=== PATIENT | male | born 1965 | race Caucasian/White ===

== ENCOUNTER 2021-06-27 09:00 | Outpatient (REF) | payer OTHER, SELFPAY ==
[2021-06-27 11:13] LABS: Alanine Aminotransferase 26 U/L (0-40); Albumin Level 4.4 g/dL (3.5-5.0); Alkaline Phosphatase 50 U/L (39-117); Anion Gap 10 (12-20); Aspartate Amino Transferase 22 U/L (5-37); Bilirubin Total 1.2 mg/dL (0.0-1.0); Blood Urea Nitrogen 15 mg/dL (9-16); Calcium 9.2 mg/dL (8.4-10.2); Carbon Dioxide 31 mmol/L (22-29); Chloride 102 mmol/L (96-108); Cholesterol 241 mg/dL; Estimated Glomerular Filt Rate > 60; Glucose Fasting 119 mg/dL (60-99); HDL Cholesterol 39 mg/dL; LDL Cholesterol Calculated 166 mg/dl; Potassium 4.1 mmol/L (3.3-5.1); Sodium 139 mmol/L (135-145); Total Protein 7.4 g/dL (6.5-8.0); Triglycerides 181 mg/dL
[2021-06-27 11:22] LABS: Estimated Average Glucose 128 mg/dL; Hemoglobin A1c % 6.1 %
[2021-06-27 11:26] LABS: Appearance Urine CLEAR; Color Urine YELLOW; Glucose Urine UA NEG (NEG); Leukocyte Esterase Urine NEG (NEG); Nitrite Urine NEG (NEG); Urine Blood NEG (NEG); Urine Ketones NEG (NEG); Urine Protein NEG (NEG-TRACE)
[2021-06-27 11:34] LABS: Prostate Specific Antigen Scr 0.44 ng/mL (<0.05-4.0); TSH reflex Free T4 4.62 uIU/mL (0.32-4.0)
[2021-06-27 12:26] LABS: Free T4 (Free Thyroxine) 0.94 ng/dL (0.71-1.85)
== END 2021-06-27 09:01 | disposition home or self-care (01) ==
LOC: HO.WFDLDS 09:00
PROVIDERS: Visit Provider Family Medicine
DX: Z00.00 Encounter for general adult medical examination without abnormal findings (principal); Z12.5 Encounter for screening for malignant neoplasm of prostate; R73.01 Impaired fasting glucose
CPT/HCPCS: 36415; 80053; 80061; 81003; 83036; 84153; 84439; 84443

== ENCOUNTER → 2021-07-08 13:33 | Outpatient (BNVA) | payer OTHER, SELFPAY | PROVIDERS: PCP Family Medicine; Referring Provider Family Medicine; Visit Provider Internal Medicine Cardiovascular Disease | DX: R07.9 Chest pain, unspecified (principal); I45.2 Bifascicular block; E78.5 Hyperlipidemia, unspecified | CPT/HCPCS: 99202 ==

== ENCOUNTER → 2021-07-11 10:09 | Outpatient (REF) | payer OTHER, SELFPAY ==
--- NOTE | ~2021-07-11 | NM_ITS ---
Myocardial perfusion study Indication: Chest pain to evaluate for myocardial ischemia Technique: The patient was brought in for a Lexiscan perfusion study on 07/11/2021. Patient performed low-level exercise and was injected 0.4 mg of Lexiscan intravenously. Within a minute of injection, 30 mCi of sestamibi was given intravenously. Images were obtained using the SPECT gamma camera interlaced with the gating device. Images were obtained in supine position. Resting perfusion study was performed on 07/15/2021. Patient was administered 30 mCi of sestamibi intravenously at rest. Images were then obtained in supine position. Images obtained with and without CT attenuation. Total DLP 91 mGy-cm. Images were processed with the software and compared side to side in short axis, horizontal long axis and vertical long axis views. Findings: The stress perfusion study showed non attenuated images show minimally reduced uptake in the basal inferior wall of the LV myocardium. Remainder of the LV myocardium is normally perfused attenuation corrected images show minimally reduced uptake in the septum of the LV myocardium.. The gated study shows normal LV systolic function with calculated LVEF of 56%. LV cavity is normal in size. The gated study shows normal systolic wall thickening and contraction of segments. Resting study shows no change in perfusion pattern compared to stress perfusion study. Gating at rest reveals normal systolic wall motion with ejection fraction at 59%. The findings are consistent with normal myocardial perfusion. NM/NM cardiolite stress test Impression: 1. Myocardial perfusion imaging study shows normal myocardial perfusion 2. Gated LVEF is 56% 3. Transient ischemic dilatation not present EKG is nondiagnostic for ischemia
--- NOTE | 2021-07-11 10:12 | CA_ITS ---
Acquisition Time: 2021-07-11 10:34:24 Total Exercise Time: 00:05:13 Test Indications: Abnormal ECG Medications: NONE Protocol: SHON Max HR: 115 BPM 69% of Pred: 165 BPM Max BP: 152/088 mmHG Max Work Load: 6.9 METS Exercise stress test with exercise 5 min 13 sec of Shon protocol, with report of 6/10 sharp localized pain to left of sternum which is present with inspiration and request to stop exercise, with nondiagnostic EKG for ischemia due to suboptimal heart rate, achieving 67% MPHR. Pt assisted to sitting position and allowed to rest for 6 min. Chest discomfort resolved. Testing was changed to a pharmacological stress test with Lexiscan injection, without anginal symptoms, without arrythmia, with normotensive response to injection, with nondiagnostic EKG for ischemia. In recovery he reported headache and was treated with Aminophylline 75mg IVP to reverse Lexiscan with resolution of symptom. Nuclear images pending. Test reviewed with Dr Tang. Referred By: Mingo Noel Overread By: INDY DOWELL
--- NOTE | 2021-07-11 11:17 | HM_ITS ---
Conclusion: 1. Patient was monitored for total period of 3 days and 8 hours 2. Baseline was normal sinus with average heart of 80 beats per minute 3. 1 5 beats supra tachycardia episode noted. 4. Very rare ectopy noted 5. No patient reported symptoms MTDD
== END ==
LOC: HO.CARD 10:09
PROVIDERS: PCP Family Medicine; Visit Provider Internal Medicine Cardiovascular Disease
DX: R07.9 Chest pain, unspecified (principal); I45.2 Bifascicular block
CPT/HCPCS: 78452; 93017; 93242; A9500; J0280; J2785

== ENCOUNTER → 2021-07-15 10:23 | Outpatient (REF) | payer OTHER, SELFPAY ==
--- NOTE | 2021-07-15 10:27 | CA_ITS ---
Transthoracic Echocardiogram Patient (Last, First, Middle): Parker Avendano, Gender: Male Date of : 1965 Age: 56 Procedure Date: 07/15/2021 Procedure Type: Transthoracic Echocardiogram Location: OP Height: 175.26 cm Weight: 85.28 kg BSA: 2.01 m2 Heart Rate: bpm BP: 130 / 70 mmHg [place] Camp Counselor: ALEKS Referring MD: Mingo Noel MD Medical Billing Associate: Mingo Noel MD Symptoms: I45.2 - Bifascicular block Study Quality: Fair ECG Rhythm: Sinus Conclusions: - 1. Normal LV systolic function with impaired relaxation filling pattern 2. Mildly dilated ascending aorta 3. Trivial aortic regurgitation 4. Normal RV systolic pressure 5. No gross pericardial effusion Findings Left Ventricle Normal left ventricular size, thickness, and systolic function. The visually estimated ejection fraction is between 55-60%. Spectral Doppler is indicative of an impaired relaxation filling pattern. E/E prime ratio is between 8 and 15 consistent with indeterminate filling pressures. Right Ventricle Normal right ventricular cavity size and systolic function. Atria The left atrium is likely dilated. There is no evidence of interatrial shunt. The right atrium is normal in size. Aortic Valve The aortic valve structure and function is likely normal. There is no aortic valve stenosis. There is trace (trivial) aortic valve regurgitation. Mitral Valve Normal mitral valve structure and function. There is trace mitral valve regurgitation. There is no mitral valve stenosis. Pulmonic Valve The pulmonic valve is likely normal. Tricuspid Valve Likely normal tricuspid valve structure and function. There is trace tricuspid valve regurgitation. The right ventricular systolic pressure is normal. The right ventricular systolic pressure is 10 mmHg. Normal right atrial pressure. There is no evidence of pulmonary hypertension. Great Vessels The pulmonary artery was not well visualized. There is mild dilatation of the ascending aorta. Venous The inferior vena cava is normal in size and collapses greater than 50% with inspiration. Pericardium/Pleural There is no evidence of pericardial effusion. Prior Study Comparison No significant change compared to prior study dated: 07/08/2019. Measurements 2D Linear Measurements IVSd: 1.03 0.6-0.9/0.6-1.0 cm LVIDd: 4.78 3.9-5.3/4.2-5.9 cm LVIDd Index: 2.38 2.4-3.2/2.2-3.1 cm/m2 LVIDs: 2.94 2.0-3.6 cm LVPWd: 1.02 0.7-1.1 cm LA Diam: 3.90 2.7-3.8/3.0-4.0 cm LAIDs Index: 1.94 1.5-2.3 cm/m2 LV Mass: 217.77 67-162/88-224 g LV Mass Index: 108.34 43-95/49-115 g/m2 LVOT Diam: 2.20 3.0+(-)1.3 cm 2D Systolic Function EF 4C: 55.70 >55% EF 2C: 55.90 >55% EF BiP: 56.00 >55% Mitral Valve MV Pk E: 0.50 MV PK A: 0.61 MV Decel Time: 207.00 E/A: 0.80 E'Lateral: 5.33 E'Medial: 4.46 E/E' Med: 11.20 E/E' Lat: 9.40 PHT: 61.00 MVA PHT: 3.61 Decel [place]: 2.42 Aortic Valve AoV Pk Jt: 1.45 AoV Mn Jt: 1.08 AoV VTI: 0.27 AoV Pk Grad: 8.00 Aov Mn Grad: 5.00 GOLDEN Cont.VTI: 2.19 LVOT LVOT Pk Jt: 0.86 LVOT Mn Jt: 0.59 LVOT VTI: 0.16 LVOT Pk Grad: 3.00 LVOT Mn Grad: 2.00 LVOT Diam: 2.20 LVOT Area: 3.80 Diastolic Function MV Pk E: 0.50 MV Pk A: 0.61 E/A: 0.80 E'Medial: 4.46 E/E' Med: 11.20 E' Laterial: 5.33 E/E' Lat: 9.40 Right Ventricle TAPSE (mm): 24.30 TVS' Jt: 12.10 Tricuspid Valve TR Pk Jt: 1.30 TR Pk Grad: 7.00 RA Press: 3.00 RVSP: 10.00 Great Vessels Aorta Sinus of Valsalva: 3.44 2.0-3.[address] [place]: 3.44 1.7-3.4 cm Ao Asc: 4.00 2.1-3.4 cm Ao Arch: 3.60 Updated in Other Vendor System with Status of Final Mingo Noel MD electronically signed on 07/15/2021 11:53:20 AM with status of Final
== END ==
LOC: HO.CARD 10:23
PROVIDERS: PCP Family Medicine; Visit Provider Internal Medicine Cardiovascular Disease
DX: I45.2 Bifascicular block (principal)
CPT/HCPCS: 93306

== ENCOUNTER → 2021-07-31 08:25 | Outpatient (BNVA) | payer OTHER, SELFPAY | PROVIDERS: PCP Family Medicine; Referring Provider Family Medicine; Visit Provider Internal Medicine Cardiovascular Disease | DX: I77.89 Other specified disorders of arteries and arterioles (principal); I45.2 Bifascicular block; E78.5 Hyperlipidemia, unspecified | CPT/HCPCS: 99212 ==

== ENCOUNTER 2021-09-05 14:00 | Outpatient (RCR) | payer OTHER, SELFPAY ==
--- NOTE | 2021-08-23 15:38 | MHC.PT.EP ---
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 REPORTS RELIEF AFTER SURGERY (REHAB/PT) WITH [facility]XS RECURRING ABOUT 1 YR AGO AND PROGRESSING WITH RECENT INCREASE IN R LE PAIN AND PARESTHESIA. 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 REPORTS SITTING IN CAR SIGNIF IRRITATES R LE. PRESENTS WITH R LE WEAKNESS AND DECREASED FLEXIBILITY. GOOD PT CANDIDATE TO ADDRESS THESE ISSUES Frequency and Duration: The patient will be seen 2X/WK X 6 WKS Short Term Goals: 1. INCREASED AWARENESS POSTURE AND BACK CARE 2. CENTRALIZED SXS Mri Manager Goals: 1.I HEP WITH DC EX PLAN 2. DECREASED R LEG PAIN AT LEAST 50% WITH ADLS 3. INCREASED R LE STRENGTH (PER MMT AND REPORT) Treatment Plan: Modalities to reduce pain, spasms and effusion. Manual therapy to restore motion and function. Therapeutic exercise to improve strength and flexibility. Neuromuscular re-education for posture and balance. Therapeutic activities to return to functional activities of daily living. Electronically signed by: EARLINE HARDING PT Please sign and return to therapist. Thank you for your referral.
--- NOTE | 2021-10-21 13:41 | MHC.PT.DC ---
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 LAST SEEN ON 08/30/21 WITH ANNY COULTER DPT,PT. 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 Sheikh at the time). When therapist inquired level ? L5/S1 pt stated he believes so. Upon review [facility] [place] record it appears pt had 05/2004- R sided S1 nerve sheath resection. Pt stated surgery was performed at [facility]. We reviewed stretches of hamstring and calf this date in addition to trial of prone based stabilization with no significant relief of intensity of sx on the R LE. Pt encouraged/educated in benefit in changing position use of lumbar support while driving often and frequently with increased stretching. Pt also educated in potential benefit in obtaining consult for alternative footwear to accommodate arthritic changes to R great toe with increased arch as he presents with flat non supportive worn sneakers.., spoke re: (Wear pattern observed on lateral aspect of heel this date).' Pt THEN CANCELLED FURTHER VISITS..? AWAITING MRI... WAS SEEN BY DR VILLEDA ON 10/11/21. Electronically signed by: EARLINE HARDING PT Please sign and return to therapist. Thank you for your referral.
== END 2021-10-21 13:41 | disposition home or self-care (01) ==
LOC: HO.PTWFD 14:00
PROVIDERS: PCP Family Medicine; Visit Provider Family Medicine
DX: M79.604 Pain in right leg (principal)
CPT/HCPCS: 97110; 97161; 97535

== ENCOUNTER → 2021-10-02 14:23 | Outpatient (BNVA) | payer OTHER, SELFPAY | PROVIDERS: PCP Family Medicine; Visit Provider Nurse Practitioner Family | DX: K59.04 Chronic idiopathic constipation (principal); Z12.11 Encounter for screening for malignant neoplasm of colon | CPT/HCPCS: 99202; 99212 ==

== ENCOUNTER 2021-10-04 07:25 | Outpatient (REF) | payer OTHER, SELFPAY ==
[2021-10-04 11:51] LABS: Cholesterol 216 mg/dL; HDL Cholesterol 38 mg/dL; LDL Cholesterol Calculated 139 mg/dl; Triglycerides 199 mg/dL
[2021-10-08 14:31] LABS: CRP High Sensitivity 0.5 mg/L
== END 2021-10-04 07:26 | disposition home or self-care (01) ==
LOC: HO.WFDLDS 07:25
PROVIDERS: Visit Provider Internal Medicine Cardiovascular Disease
DX: I25.10 Atherosclerotic heart disease of native coronary artery without angina pectoris (principal); E78.5 Hyperlipidemia, unspecified
CPT/HCPCS: 36415; 80061; 86141

== ENCOUNTER 2021-10-09 10:09 | Outpatient (REF) | payer OTHER, SELFPAY ==
--- NOTE | ~2021-10-09 | CT_ITS ---
EXAMINATION: CT ANGIOGRAM OF THE CHEST WITHOUT AND WITH CONTRAST CLINICAL INFORMATION: Thoracic aortic aneurysm COMPARISON: None. TECHNIQUE: Multidetector volumetric CT imaging of the chest was performed before and after the administration of 70 mL of Omnipaque 350 intravenous contrast without immediate adverse reactions. 3D POSTPROCESSING: Multiple 3-D angiographic images were processed from the initial data set by the x ray technologist at the modality workstation under concurrent physician supervision. DOSE LOWERING TECHNIQUES: This CT examination was performed using dose optimization techniques as appropriate, variously including the following: - Automated exposure control - Adjustment of mA and/or kV according to patient size (this includes techniques or standardized protocols for targeted exams where dose is matched to indication/reason for exam; i.e. extremities or head) - Use of iterative reconstruction technique DLP: 328 mGy-cm. FINDINGS: VASCULAR: ASCENDING AORTA: Significant motion artifact seen. This level aortic valve and sinuses. The mid segment measures 4.1 x 4.3 cm. AORTIC ARCH: The mid aortic arch 2.3 x 2.7 cm. Two-vessel arch anatomy. The great vessels are patent. Minimal atherosclerotic wall calcifications DESCENDING AORTA: The proximal segment measures 3.2 x 3.1 cm. The distal segment measures 2.3 x 2.3 cm. No significant atherosclerotic plaque ABDOMINAL AORTA: Visualized proximal abdominal aorta is normal in caliber. NONVASCULAR: LUNGS: The lungs are clear with no evidence of inflammation or nodules. MEDIASTINUM: Heart is enlarged. Pericardium is normal. No mediastinal lymphadenopathy PLEURA: There is no pleural effusion. No pleural mass or thickening. ABDOMINAL VISCERA: Unremarkable OSSEOUS STRUCTURES: Unremarkable. CT/CT angio chest aorta IMPRESSION: Ectasia of the ascending thoracic aorta measuring 4.3 cm in the mid segment. Cardiomegaly
[2021-10-09 10:53] LABS: Anion Gap 11 (12-20); Blood Urea Nitrogen 9 mg/dL (9-16); Calcium 9.2 mg/dL (8.4-10.2); Carbon Dioxide 27 mmol/L (22-29); Chloride 104 mmol/L (96-108); Estimated Glomerular Filt Rate > 60; Glucose Random 132 mg/dL (60-115); Sodium 138 mmol/L (135-145)
[2021-10-09] MEDS: iohexoL 350 MG/ML 75 ML INFUS..BTL 70 ML IV (11:47)
== END 2021-10-09 10:10 | disposition home or self-care (01) ==
LOC: HO.CT 10:09
PROVIDERS: Visit Provider Internal Medicine Cardiovascular Disease
DX: R07.9 Chest pain, unspecified (principal); I77.89 Other specified disorders of arteries and arterioles; R73.03 Prediabetes
CPT/HCPCS: 36415; 71275; 80048; Q9967

== ENCOUNTER 2022-01-16 12:38 | Outpatient (REF) | payer OTHER, SELFPAY | END 2022-01-16 12:39 | disposition home or self-care (01) | LOC: HO.LAB 12:38 | PROVIDERS: Visit Provider Nurse Practitioner Family | DX: Z13.89 Encounter for screening for other disorder (principal) ==

== ENCOUNTER 2022-01-16 14:59 | Outpatient (REF) | payer OTHER, SELFPAY | END 2022-01-16 15:00 | disposition home or self-care (01) | LOC: HO.LNP 14:59 | PROVIDERS: Visit Provider Nurse Practitioner Family | DX: Z20.822 Contact with and (suspected) exposure to COVID-19 (principal); R05.9 Cough, unspecified | CPT/HCPCS: U0003; U0005 ==

== ENCOUNTER 2022-01-30 10:25 | Day surgery (SDC) | payer OTHER, SELFPAY ==
[2022-01-30 10:40] VITALS: BP 157/99; PULSE 74; RESP 16; TEMP 36.2; O2SAT 97; BMI 27.7
[2022-01-30] MEDS: Lactated Ringers 1,000 ML 50 ML IVCONT (10:48)
--- NOTE | 2022-01-30 10:51 | MHC.SHP ---
Pre-Procedural Eval Section A Date of Service: 01/30/22 Section B Chief Complaint: screening Relevant Family History (Specify if Yes): No Relevant Social History: None Present Medications: see Short Stay Collaborative assessment Medical History: Significant History (Bifascicular block Enlarged thoracic aorta Hyperlipidemia) History of Previous Operations: No relevant previous surgery Allergies: Allergies Allergy/AdvReac Type Severity Reaction Status Date / Time No Known Allergies Allergy Verified 01/16/22 13:02 [No Known Allergies*] Review of Systems Sugical H&P ROS: Negative: Constitution, Cardiovascular, Respiratory, Neurological, Psychiatric, Hem-Onc, Allergic/Immunologic, Gastrointestinal, Genitourinary, Musculoskeletal, Integumentary, Endocrine and Eyes/Ears/Nose/Throat Exam Surgical H&P Exam: Normal: HEENT, Normal: Heart, Normal: Lungs, Normal: Extremities, Normal: Abdomen, Normal: Skin and Normal: Neurological Plan Diagnosis/Plan: Unchanged I have reviewed the history and physical and performed a pertinent physical examination on my patient. No changes have occurred unless specified.
--- NOTE | 2022-01-30 11:03 | P.OP_ITS ---
Operative Note Operative Note Date of Service: 01/30/22 Narrative: Operative Information Procedure Description: Colonoscopy Indication: screening Anesthesia: MAC COLONOSCOPY Instrument: Olympus variable stiffness pediatric scope 190L Colonoscopy Monitoring: Vital signs and clinical assessment, continuous EKG monitoring, Pulse oximetry, Carbon Dioxide monitoring and blood pressure monitoring were done throughout the procedure. Colon withdrawal time was 18 minutes. Procedure: The patient was placed in the left lateral decubitis position and pre-procedure medications were administered. After a digital rectal examination of the ano-rectum, the video colonoscope was inserted into the rectum and advanced through the colon to the cecum/TI. The colonoscope was slowly withdrawn in a retrograde panoramic fashion and the colon mucosa was carefully examined including a retroflexed view of the rectum. Findings and interventions are described below. Procedure Difficulty: easy Findings: Terminal Ileum-normal, bx taken Cecum: mild colitis with erythema and few microabscesses Ascending Colon: normal, bx taken , few divertciula seen Transverse Colon -normal Descending Colon:normal Sigmoid Colon: 10 mm sessile polyp removed with cold snare, moderately severe diverticulosis Rectum: Retroflexion with small internal hemorrhoids, grade I Anorectum - normal Colon preparation: Bosler Bowel Preparation Scale Right colon; 2 Transverse colon: 2 Left colon; 2 (0 = Unprepared colon segment with mucosa not seen due to solid stool that cannot be cleared. 1 = Portion of mucosa of the colon segment seen, but other areas of the colon segment not well seen due to staining, residual stool and/or opaque liquid. 2 = Minor amount of residual staining, small fragments of stool and/or opaque liquid, but mucosa of colon segment seen well. 3 = Entire mucosa of colon segment seen well with no residual staining, small fragments of stool or opaque liquid) Impression and Post Procedure Diagnosis: polyp internal hemorrhoids diverticular disease Plan: High fiber diet leaflet Avoid straining at stool, epsom salts and sitz bath, anusol supps or cream Repeat Colonoscopy in 5 years due to polyps or earlier if clinically indicated Above findings were reviewed with the patient and relevant handouts were provided if indicated.
--- NOTE | 2022-01-30 11:08 | PC.NURSE ---
pt denies having COVID. pt states his was positive but his test was never positive and was asymptomatic. Dr. Durand notified and no longer need to obtain COVID test prior to procedure.
[2022-01-30 11:40] VITALS: BP 122/77; PULSE 76; RESP 16; TEMP 36.2; O2SAT 97
--- NOTE | 2022-01-30 11:44 | P.CONAN_ITS ---
HPI - Anesthesia Eval Consult details Narrative: Surveillance [facility] Active Problems Active Problems: All Active Problems (Updated 01/20/22 @ 13:57 by Elder Martinze CNP) COVID-19 (Acute) Viral upper respiratory illness (Acute) Foot pain (Acute) Headache (Acute) Hypertension (Acute) Hypertensive urgency (Acute) Constipation (Acute) Cervicalgia (Acute) Low HDL (under 40) (Acute) Screening for prostate cancer (Acute) Screening for colon cancer (Acute) Elevated TSH (Acute) Pre-diabetes (Acute) Adult general medical exam (Acute) Enlarged thoracic aorta (Acute) Hyperlipidemia (Acute) Bifascicular block (Acute) Exertional chest pain (Acute) Family history of coronary artery disease (Acute) Spinal cord tumor (Acute) Right leg pain (Acute) Elevated fasting blood sugar (Acute) Laboratory examination ordered as part of a complete physical examination (Acute) Past Medical History Medical History Bifascicular block Enlarged thoracic aorta Hyperlipidemia Family History Family history of problems with anesthesia: No Surgical History History of Problems with Anesthesia: No Social History Social History Housing: House Patient Tobacco Use Status: Never used Tobacco e-Cigarette/Vaping Use: Never Used Second Hand Smoke Exposure: No Use of substances other than those prescribed or required for medical reasons: No Are you DNR?: No Advance Directives: No Advance Directives Information Provided: Yes Advance Directives on File: No service: No Current occupational status: employed and unemployed Current occupational exposures/hazards: No Cognitive needs: No Hearing needs: No Vision needs: No Meds Allergies Allergy/AdvReac Type Severity Reaction Status Date / Time No Known Allergies Allergy Verified 01/16/22 13:02 [No Known Allergies*] Active Medications: Current Medications Lactated Ringer's (Lr) 1,000 mls @ 50 mls/hr IVCONT .Q20H KOJO Last Admin: 01/30/22 10:48 Dose: 50 mls/hr Home Medications Medication Instructions Recorded Confirmed Last Taken Type chlorhexidine gluconate 0.12 % ml PO 10/11/21 01/16/22 Unknown History mouthwash oxycodone 5 mg tablet 5 mg PO Q4H PRN pain 10/11/21 01/16/22 Unknown History Exam Exam Date and Time: January 30, 2022 1144 Height,Weight and Vital Signs: Height 5 ft 9 in Weight 85.275 kg Last Vital Signs Temp 97.2 F 01/30/22 10:40 Pulse 74 01/30/22 10:40 Resp 16 01/30/22 10:40 BP 157/99 H 01/30/22 10:40 Pulse Ox 97 01/30/22 10:40 O2 Del Method 01/30/22 10:40 Airway Mallampati Class: II TM Dist: >3cm Neck ROM: Full Loose/Missing/Broken Teeth: No Heart: rrr+s1s2 Lungs: cta b/l Assessment and Plan Assessment Anesthesia Assessment: Anesthesia Plan Discussed and Chart Reviewed Final Anesthetic Review Family History of Problems with Anesthesia: No History of Problems with Anesthesia: No NPO: Yes ASA Class: III Final Preanesthetic Review: No Changes in Pt Med Stat, Meds/Allgs Chart Reviewed, Consent Obtained/Reviewed and Anes Risks/Benef Reviewed Patient Risk: Intermediate Procedure Risk: Intermediate Assessment/Block/Sedation in SS: Assess/Block/Sedation-SS Anesthetic Plan Anesthetic Plan: MAC: and Agree w/ Assess. and Plan Disposition: Standard PACU
[2022-01-30 11:55] VITALS: BP 126/82; PULSE 64; RESP 16; O2SAT 97
[2022-01-30 12:10] VITALS: BP 153/98; PULSE 87; RESP 16; TEMP 36.2; O2SAT 97
== END 2022-01-30 12:50 | disposition home or self-care (01) ==
PROVIDERS: Visit Provider Internal Medicine Gastroenterology
PROC: 0DJD8ZZ Inspection of Lower Intestinal Tract, Via Natural or Artificial Opening Endoscopic (ICD-10-PCS; CPT 45378; principal; 2022-01-30 11:50)
DX: Z12.11 Encounter for screening for malignant neoplasm of colon (principal); D12.5 Benign neoplasm of sigmoid colon; K57.30 Diverticulosis of large intestine without perforation or abscess without bleeding; K52.9 Noninfective gastroenteritis and colitis, unspecified; K64.0 First degree hemorrhoids; K59.04 Chronic idiopathic constipation; E78.5 Hyperlipidemia, unspecified; I45.2 Bifascicular block; I77.810 Thoracic aortic ectasia
CPT/HCPCS: 45385; 45380; 88305

== ENCOUNTER 2022-02-06 08:50 | Outpatient (REF) | payer OTHER, SELFPAY ==
[2022-02-06 12:03] LABS: Appearance Urine Clear; Color Urine Yellow; Glucose Urine UA Negative (Negative); Leukocyte Esterase Urine Negative (Negative); Nitrite Urine Negative (Negative); Urine Blood Negative (Negative); Urine Ketones Negative (Negative); Urine Protein Negative (Neg-Trace)
[2022-02-06 12:19] LABS: Alanine Aminotransferase 34 U/L (0-40); Albumin Level 4.5 g/dL (3.5-5.0); Alkaline Phosphatase 53 U/L (39-117); Anion Gap 14 (12-20); Aspartate Amino Transferase 22 U/L (5-37); Bilirubin Total 1.2 mg/dL (0.0-1.0); Blood Urea Nitrogen 9 mg/dL (9-16); Calcium 9.2 mg/dL (8.4-10.2); Carbon Dioxide 27 mmol/L (22-29); Chloride 104 mmol/L (96-108); Cholesterol 195 mg/dL; Estimated Glomerular Filt Rate > 60; Glucose Random 133 mg/dL (60-115); HDL Cholesterol 40 mg/dL; LDL Cholesterol Calculated 119 mg/dl; Potassium 4.2 mmol/L (3.3-5.1); Sodium 141 mmol/L (135-145); Total Protein 7.3 g/dL (6.5-8.0); Triglycerides 182 mg/dL
[2022-02-06 12:26] LABS: Prostate Specific Antigen Scr 0.35 ng/mL (<0.05-4.0)
== END 2022-02-06 08:51 | disposition home or self-care (01) ==
LOC: HO.WFDLDS 08:50
PROVIDERS: Visit Provider Family Medicine
DX: Z00.00 Encounter for general adult medical examination without abnormal findings (principal); Z12.5 Encounter for screening for malignant neoplasm of prostate; I10 Essential (primary) hypertension; E78.6 Lipoprotein deficiency
CPT/HCPCS: 36415; 80053; 80061; 81003; 84153

== ENCOUNTER 2022-05-28 14:43 | Outpatient (REF) | payer OTHER, SELFPAY ==
[2022-05-29 12:37] LABS: Influenza A PCR NEGATIVE (Negative); Influenza B PCR NEGATIVE (Negative); Resp Syncy Virus RNA Qual PCR NEGATIVE (Negative); SARS COV2 PCR INHOUSE NEGATIVE (Negative)
== END 2022-05-28 14:44 | disposition home or self-care (01) ==
LOC: HO.LAB 14:43
PROVIDERS: Visit Provider Nurse Practitioner Family
DX: Z20.822 Contact with and (suspected) exposure to COVID-19 (principal)
CPT/HCPCS: 0241U

== ENCOUNTER → 2022-08-07 12:53 | Outpatient (REF) | payer OTHER, SELFPAY ==
--- NOTE | 2022-08-07 12:56 | CA_ITS ---
Transthoracic Echocardiogram Patient (Last, First, Middle): Parker Avendano, Gender: Male Date of : 1965 Age: 57 Procedure Date: 08/07/2022 Procedure Type: Transthoracic Echocardiogram Location: OP Height: 175.26 cm Weight: 83.92 kg BSA: 2.00 m2 Heart Rate: 55 bpm BP: 145 / 80 mmHg Check Out Clerk: CHERRIE Referring MD: Mingo Noel MD Symptoms: E78.5 - Hyperlipidemia, unspecified Study Quality: Adequate ECG Rhythm: Sinus Conclusions: - The left ventricular systolic function is low normal. The calculated ejection fraction is 52% by biplane method. Findings Left Ventricle Normal left ventricular cavity size. There is mildly increased left ventricular wall thickness. The left ventricular systolic function is low normal. The calculated ejection fraction is 52% by biplane method. There is no evidence of regional wall motion abnormalities. Diastolic function is normal for age. Right Ventricle Normal right ventricular cavity size and systolic function. Atria Both atria are normal in size. Aortic Valve There is a normal trileaflet aortic valve. There is no aortic valve stenosis. There is trace (trivial) aortic valve regurgitation. Mitral Valve The mitral valve appears normal. There is no mitral valve regurgitation. There is no mitral valve stenosis. Pulmonic Valve The pulmonic valve is likely normal. Tricuspid Valve There is trace tricuspid valve regurgitation. There is no evidence of pulmonary hypertension. Great Vessels The asc aorta is normal in size. Venous The inferior vena cava is normal in size and collapses greater than 50% with inspiration. Pericardium/Pleural There is no evidence of pericardial effusion. Prior Study Comparison Changes noted compared to prior study dated: 07/15/2021. Ascending aortic size smaller; could be technical error. LVEF slightly lower; could be inter-observer variability. Recommendations, Care & Conclusions No obvious valvular pathology seen on this study. Measurements 2D Linear Measurements IVSd: 1.02 0.6-0.9/0.6-1.0 cm LVIDd: 5.09 3.9-5.3/4.2-5.9 cm LVIDd Index: 2.55 2.4-3.2/2.2-3.1 cm/m2 LVIDs: 3.70 2.0-3.6 cm LVPWd: 1.02 0.7-1.1 cm LA Diam: 4.00 2.7-3.8/3.0-4.0 cm LAIDs Index: 2.00 1.5-2.3 cm/m2 LV Mass: 239.82 67-162/88-224 g LV Mass Index: 119.91 43-95/49-115 g/m2 LVOT Diam: 2.20 3.0+(-)1.3 cm 2D Systolic Function EF 4C: 52.40 >55% EF 2C: 56.20 >55% EF BiP: 52.20 >55% Mitral Valve MV Pk E: 0.56 MV PK A: 0.57 MV Decel Time: 176.00 E/A: 1.00 E'Lateral: 8.92 E'Medial: 6.42 E/E' Med: 8.70 E/E' Lat: 6.30 PHT: 52.00 MVA PHT: 4.23 Decel [place]: 3.19 Aortic Valve AoV Pk Jt: 1.29 AoV Mn Jt: 1.08 AoV VTI: 0.31 AoV Pk Grad: 7.00 Aov Mn Grad: 5.00 GOLDEN Cont.VTI: 2.27 LVOT LVOT Pk Jt: 0.89 LVOT Mn Jt: 0.62 LVOT VTI: 0.19 LVOT Pk Grad: 3.00 LVOT Mn Grad: 2.00 LVOT Diam: 2.20 LVOT Area: 3.80 Diastolic Function MV Pk E: 0.56 MV Pk A: 0.57 E/A: 1.00 E'Medial: 6.42 E/E' Med: 8.70 E' Laterial: 8.92 E/E' Lat: 6.30 Right Ventricle TAPSE (mm): 23.40 TVS' Jt: 11.90 Tricuspid Valve TR Pk Jt: 1.24 TR Pk Grad: 6.00 RA Press: 3.00 RVSP: 9.00 Great Vessels Aorta Sinus of Valsalva: 3.50 2.0-3.5 cm Ao Asc: 3.70 2.1-3.4 cm Pulmonary Valve PV Pk Jt: 0.71 Peak PV Grad: 2.00 Updated in Other Vendor System with Status of Final Celestine Power MD electronically signed on 08/08/2022 11:05:54 AM with status of Final
== END ==
LOC: HO.CARD 12:53
PROVIDERS: Visit Provider Internal Medicine Cardiovascular Disease
DX: E78.5 Hyperlipidemia, unspecified (principal)
CPT/HCPCS: 93306

== ENCOUNTER → 2022-10-02 08:54 | Outpatient (BNVA) | payer OTHER, SELFPAY | PROVIDERS: PCP Family Medicine; Visit Provider Internal Medicine | DX: M26.19 Other specified anomalies of jaw-cranial base relationship (principal); R40.0 Somnolence; R06.83 Snoring | CPT/HCPCS: 99202 ==

== ENCOUNTER → 2022-10-16 13:03 | Outpatient (REF) | payer OTHER, SELFPAY | LOC: HO.SL 13:03 | PROVIDERS: PCP Family Medicine; Visit Provider Internal Medicine | DX: R06.83 Snoring (principal); I10 Essential (primary) hypertension; I77.89 Other specified disorders of arteries and arterioles; I45.2 Bifascicular block; R40.0 Somnolence; M26.19 Other specified anomalies of jaw-cranial base relationship | CPT/HCPCS: 93005; 99212 ==

== ENCOUNTER → 2022-10-22 14:49 | Outpatient (REF) | payer OTHER, SELFPAY | LOC: HO.SL 14:49 | PROVIDERS: Visit Provider Internal Medicine | DX: Z13.89 Encounter for screening for other disorder (principal) ==

== ENCOUNTER 2022-12-17 09:41 | Outpatient (AMB) | payer OTHER, SELFPAY ==
[2022-12-17 09:49] VITALS: BP 134/76; PULSE 65; O2SAT 98; BMI 28.3
--- NOTE | 2022-12-17 09:49 | A.OFFVIS_ITS ---
Intake Vital Signs 12/17/22 09:49 Height 5 ft 8 in Weight 186 lb 4.65 oz BMI 28.3 BP 134/76 Blood Pressure Location Lt brachial Position Sitting Pulse 65 Pulse Source Pulse Oximeter Pulse Oximetry (%) 98 Oxygen Delivery Method Room Air Intake Visit Reasons: danica Intake Note: Pt reports he has been doing well and has no concerns. 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 Since his last visit in September, he attempted to do home-based sleep study twice. Unfortunately both times the data was invalid, he does not know why. He try to follow the instructions. Continues to have lot of snoring, feels tired and sleepy during the daytime. His blood pressure has been fluctuating, he has been found to have bifascicular block on EKG. He does. Have intermittent headache. [facility] Medical History Bifascicular block Enlarged thoracic aorta Hyperlipidemia Loud snoring Retrognathia Somnolence, daytime Surgical History Hx of colonoscopy Social History Housing: House Patient Tobacco Use Status: Never used Tobacco e-Cigarette/Vaping Use: Never Used Second Hand Smoke Exposure: No service: No Current occupational status: employed and unemployed Current occupational exposures/hazards: No Cognitive needs: No Hearing needs: No Vision needs: No Review of Systems Const All systems reviewed & are unremarkable except as noted in HPI and below Reports snoring Eyes Reports no additional complaints ENT Reports no additional complaints Card Denies chest pain, Denies irregular heart rhythm, Denies leg edema and Denies dyspnea Resp Denies dyspnea, Reports snoring and Denies wheezing GI Reports no additional complaints Reports no additional complaints Musc Reports back pain (Mild) Skin/Breast Reports system reviewed and no additional complaints, except as documented Neuro Reports no additional complaints Psych Reports no additional complaints Endo Reports no additional complaints Aller/Immun Denies wheezing Physical Exam Vital Signs: Last Vital Signs Pulse 65 12/17/22 09:49 BP 134/76 12/17/22 09:49 Pulse Ox 98 12/17/22 09:49 Oxygen Delivery Method Room Air 12/17/22 09:49 BMI result Body Mass Index 28.3 Const General: cooperative, comfortable, no acute distress, alert, awake and well groomed Nutritional Appearance: overweight Orientation/consciousness: patient oriented x3 Limitations: no limitations HEENT Head: Yes atraumatic Neck Neck: Yes trachea midline, Yes supple and Yes no JVD Chest Chest palpation & inspection: normal inspection of the chest Resp Effort & Inspection: normal respiratory effort Auscultation: clear to auscultation bilaterally Cardio Jugular venous distension: no JVD Palpation: normal PMI Rate: regular rate Rhythm: regular rhythm Heart sounds: S1 normal heart sound present, S2 normal heart sound present, no click, no gallops, no murmurs and no rubs GI Auscultation: normal bowel sounds Skin General skin exam: no rashes or lesions noted Neuro General: patient oriented x3 Extrem General: Yes no clubbing, cyanosis or edema Assessment & Plan Assessment & Plan (1) Loud snoring: Comment: LOUD SNORING AT NIGHT again part of obstructive sleep apnea. Code(s): R06.83 - Snoring (2) Somnolence, daytime: Comment: Loud snoring at night with poor sleep and daytime fatigue/sleepiness, very much suggestive of obstructive sleep apnea. [place] : He does have typical symptoms of obstructive sleep apnea, including daytime somnolence. Try to do home-based sleep studyx2 but unfortunately the data was invalid. Now he the plan is to do SLEEP STUDY in the sleep lab. Most likely he is going to be positive for sleep apnea and will be s tarted on CPAP therapy , as soon as we have the results. Code(s): R40.0 - Somnolence (3) Retrognathia: Comment: Retrognathia off the lower jaw, along with regression of the chin, seems to be the underlying cause of his sleep apnea. Code(s): M26.19 - Other specified anomalies of jaw-cranial base relationship (4) Uncontrolled hypertension: Comment: I have reviewed the note of Dr. Giang , his poultry cleaner. And Parker continues to on controlled hypertension. This may be contributed by un-treated DANICA. Code(s): I10 - Essential (primary) hypertension Orders: Orders RT PSG in-lab sleep study Today M26.19 - Other specified anomalies of jaw- cranial base relationship, R06.83 - Snoring, R40.0 - Somnolence Coding Level of Care Code Est Pt Level 3 (01753) Diagnoses Loud snoring R06.83 Somnolence, daytime R40.0 Retrognathia M26.19 Uncontrolled hypertension I10
== END 2022-12-17 10:17 | disposition home or self-care (01) ==
PROVIDERS: PCP Family Medicine; Visit Provider Internal Medicine
DX: R06.83 Snoring (principal); R40.0 Somnolence; M26.19 Other specified anomalies of jaw-cranial base relationship; I10 Essential (primary) hypertension
CPT/HCPCS: 99213

== ENCOUNTER → 2022-12-17 09:41 | Outpatient (BNVA) | payer OTHER, SELFPAY | PROVIDERS: PCP Family Medicine; Visit Provider Internal Medicine | DX: R06.83 Snoring (principal); R40.0 Somnolence; M26.19 Other specified anomalies of jaw-cranial base relationship; I10 Essential (primary) hypertension | CPT/HCPCS: 99212 ==

== ENCOUNTER 2022-12-18 08:42 | Outpatient (REF) | payer OTHER, SELFPAY ==
--- NOTE | ~2022-12-18 | CT_ITS ---
EXAMINATION: CT ANGIOGRAM CHEST CLINICAL INFORMATION: Enlarged thoracic aorta. COMPARISON: CT angiogram chest 10/09/2021. TECHNIQUE: Multiple axial images were obtained through the chest after the administration of 70 mL of Omnipaque 350 intravenous contrast. Additional 2-D coronal and sagittal reformatted images and axial 3-D maximum intensity projection MIP images are generated on the CT workstation. . This CT examination was performed using dose optimization techniques as appropriate, variously including the following: *Automated exposure control *Adjustment of mA and/or kV according to patient size (this includes techniques or standardized protocols for targeted exams where dose is matched to indication/reason for exam; i.e. extremities or head) *Use of iterative reconstruction technique DLP: 151 mGy-cm VASCULAR FINDINGS: Again seen is aneurysmal dilatation of the ascending aorta. The study is not cardiac gated and there is marked artifact interfering with accurate measurements and creation of a 3-D model. Maximal measurements in the mid thoracic aorta perpendicular to a center line are 4.1 cm, unchanged from prior (8:47 compare prior 7:28). Again seen is a two-vessel branching pattern of the arch with common trunk involving the brachiocephalic and left carotid. The visualized great vessels are widely patent. Although not carried out for evaluation of the pulmonary arteries or pulmonary veins, no abnormality is seen. NONVASCULAR FINDINGS: Lungs: The lungs are clear with no evidence of inflammation or nodules. Mediastinum: There is mild cardiac enlargement. No mediastinal or hilar lymphadenopathy is seen. The thyroid is mildly heterogeneous but a discrete mass is not seen. Pleura: There is no pleural effusion. No pleural mass or thickening. Axilla: No lymphadenopathy. Upper Abdomen: Unremarkable. Osseous Structures: Unremarkable. CT/CT angio chest aorta IMPRESSION: Aneurysmal dilatation of the ascending aorta with maximal dimension perpendicular to a center line of 4.1 cm, unchanged when compared to the 10/09/2021 study. Fleischner guidelines were followed.
[2022-12-18] MEDS: iohexoL 350 MG/ML 100 ML INFUS..BTL IV (09:28)
[2022-12-18 14:00] LABS: Creatinine POC 0.8 mg/dL (0.5-1.4); GFR POC > 60
== END 2022-12-18 08:43 | disposition home or self-care (01) ==
LOC: HO.CT 08:42
PROVIDERS: PCP Family Medicine; Visit Provider Internal Medicine Cardiovascular Disease
DX: I77.89 Other specified disorders of arteries and arterioles (principal)
CPT/HCPCS: 71275; 82565; Q9967

== ENCOUNTER → 2023-01-08 20:30 | Outpatient (REF) | payer OTHER, SELFPAY | LOC: HO.SL 20:30 | PROVIDERS: PCP Family Medicine; Visit Provider Internal Medicine | DX: G47.33 Obstructive sleep apnea (adult) (pediatric) (principal); R06.83 Snoring; R40.0 Somnolence | CPT/HCPCS: 95810 ==

== ENCOUNTER → 2023-01-08 22:47 | Outpatient (BNV) | payer OTHER, SELFPAY | PROVIDERS: PCP Family Medicine; Visit Provider Psychiatry & Neurology Neurology | DX: G47.33 Obstructive sleep apnea (adult) (pediatric) (principal) | CPT/HCPCS: 95810 ==

== ENCOUNTER 2023-04-08 13:09 | Emergency (ER) | payer OTHER, SELFPAY ==
[2023-04-08 13:28] VITALS: BP 152/87; PULSE 73; RESP 19; TEMP 36.6; O2SAT 98; BMI 27.7
--- NOTE | 2023-04-08 13:34 | ED.GENADULT ---
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 Does report heavy lifting which he knows he is not supposed to be doing with his tumor history. Patient used to follow with neurosurgery here at [facility] however was lost to follow-up 5 years ago. Reports chronic numbness/paresthesias. Does report a few episodes of urinary incontinence a few days ago, which is resolved/improved at present. Denies direct injury/trauma or fall, weakness, retention, fever, hematuria/dysuria, nausea/vomiting Related Data Previous Rx's Medication Instructions Recorded blood pressure test kit-large #1 ea 10/16/22 ([employer] Versa Arm BP Monitor kit) metoprolol succinate 25 mg 25 mg PO DAILY #30 tabs 10/16/22 tablet,extended release 24 hr (Toprol XL) amlodipine 5 mg tablet 5 mg PO DAILY #90 tabs 01/13/23 atorvastatin 40 mg tablet 40 mg PO DAILY #90 tabs 01/13/23 acetaminophen 500 mg tablet 500 mg PO Q6H PRN fever or pain 04/09/23 (Tylenol Extra Strength) #14 tabs cyclobenzaprine 5 mg tablet 5 mg PO Q8H PRN pain (scale score 04/09/23 7-10) 5 days #14 tabs lidocaine 5 % topical patch 1 patch topical DAILY PRN pain #30 04/09/23 (Lidoderm) ea naproxen 500 mg tablet 500 mg PO BID PRN pain 10 days #20 04/09/23 tabs Allergies Allergy/AdvReac Type Severity Reaction Status Date / Time No Known Allergies Allergy Verified 04/08/23 13:28 [No Known Allergies*] Review of Systems Review of Systems: Constitutional: No Fever, No Chills ENT/Mouth: No Ear Pain, No Nasal Congestion, No sore throat, No Rhinorrhea, No Swallowing Difficulty Cardiovascular: No Chest Pain, No SOB Respiratory: No Cough, No Sputum Gastrointestinal: No Nausea, No Vomiting, No Diarrhea, No Constipation, No Abdominal pain Genitourinary: No Dysuria, No Urinary Frequency, No Hematuria, + Urinary Incontinence (resolved). No retention, No Flank Pain Musculoskeletal:+joint pain, No Myalgias, No Joint Swelling Skin: No Skin Lesions, No rash Neuro: No Weakness, +Numbness (chronic), + Paresthesias (chronic) Yes all other systems are reviewed and are negative Constitutional: Constitutional: Reports as per HPI Neurologic: Denies Abnormal speech present [facility] Past Medical History Attestation statement: The following information was validated with the patient. Source: old records reviewed Medical History Loud snoring Somnolence, daytime Retrognathia Enlarged thoracic aorta Hyperlipidemia Bifascicular block Surgical History Hx of colonoscopy Social History Social History Housing: House Patient Tobacco Use Status: Never used Tobacco e-Cigarette/Vaping Use: Never Used Second Hand Smoke Exposure: No Advance Directives: No Advance Directives Information Provided: No service: No Current occupational status: employed and unemployed Current occupational exposures/hazards: No Cognitive needs: No Hearing needs: No Vision needs: No Physical Exam ED Vital Signs: Vital Signs - 24 hr 04/08/23 13:28 04/08/23 23:33 Temperature 98 F 99 F Pulse Rate 73 76 Respiratory Rate 19 20 Blood Pressure 152/87 H 145/75 H Pulse Oximetry 98 98 Oxygen Delivery Method Room Air Room Air BMI result Body Mass Index 27.7 Const General: cooperative, healthy appearing and no acute distress Orientation/consciousness: patient oriented x3 Limitations: no limitations HENMT Head: Yes normal to inspection and Yes atraumatic Ears: hearing grossly normal bilaterally General nose exam: Normal external nose present Face and sinus: Yes normal facial exam Eyes General: appearance normal, both eyes and all related structures EOM: EOMs intact bilaterally Neck Neck: Yes normal visual inspection and Yes no meningeal signs Resp Effort & Inspection: normal respiratory effort and no respiratory distress Cardio Rate: regular rate Peripheral pulses: Peripheral pulses 2+ throughout GI Inspection: Yes normal to inspection Palpation (GI): Soft to palpation, nontender, no guarding and not rigid General: Yes no CVA tenderness Back/Spine/Pelvis Other: No midline cervical/thoracic/lumbar spinous tenderness/step-off or deformity. + right lower lumbar MSK tenderness to palpation. No erythema/warmth or swelling Back: no CVA tenderness Skin Rashes: no rashes Wounds: no wounds Neuro Other: Strength intact throughout. No saddle anesthesia. Sensation intact to light touch. Neurovascular intact distally General: patient oriented x3, gait normal, tone normal, moves all extremities, no meningeal signs, no focal motor deficits and CN's II-XI intact bilaterally Cranial nerves: Yes CN's II-XII intact bilaterally Cognition (Neuro): normal cognition Speech: No Abnormal speech present Gait exam (Neuro): Normal gait present Motor exam (neuro): 5/5 motor strength present throughout Extrem General: Yes normal to inspection Course Course Course Narrative: This is an RME: Additional HPI, ROS, PE not included below will be deferred to primary provider. This is a 65-[id number]-male, with a history of hyperlipidemia and benign lumbar , presenting to the emergency department with complaints of back pain and abdominal the last 2 days. He has a history of a benign tumor which was removed patient seen years ago. States that his symptoms feel the same. He is ambulatory - no urinary/bowel incontinence or retention, no saddle anesthesia. Plan: Labs, further ER evaluation needed. -0015--labs reassuring. Would like to obtain imaging in the ED to further evaluate patient's symptomatology/known tumor, however patient has been in the ED for 11hrs & due to long wait time states he needs to go home as has his son at home that is a minor, and both him and his were in the emergency department. Discussed importance of needed close follow-up with neurosurgeon/PCP. Would recommend MRI, however CT would be performed today if patient stayed in emergency department. Discussed he is always welcome to return >Results discussed with patient including worrisome signs and symptoms and strict return precautions including recurrent incontinence/retention, fever, weakness, etc, and when to return to the emergency department. They verbalized understanding and feel safe for discharge at this time. 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 On exam vital signs stable, NAD, nontoxic appearing, physical exam as noted above. No midline spinous tenderness throughout. Does report remote history of urinary incontinence however resolved at present. No saddle anesthesia appreciated, ambulating with steady gait. Abdomen soft/nontender. Concern for worsening/encroaching tumor vs sciatica vs MSK pain/strain vs ?Renal stone. Low suspicion for testicular torsion. Lower suspicion for cauda equina or epidural abscess. Labs ordered in triage Please refer to course for remaining clinical decision making, interpretation of labs/imaging results, and discussions with consultants and/or family members. Differential Diagnosis Differential Diagnoses: The differential diagnosis associated with the presentation includes As above Admission/Observation Consideration of admission/observation: Escalation of care including admission/observation considered Lab Data MDM Lab Attestation statement: I reviewed the patient's lab results. 04/08/23 15:49 04/08/23 15:49 Labs: Lab Results 04/08/23 Range/Units 15:49 WBC 8.7 (4.8-10.8) X10*3/uL RBC 5.18 (4.60-5.80) X10*6/uL Hgb 15.5 (14.0-18.0) g/dl Hct 43.0 (42.0-52.0) % MCV 83.0 (80.0-98.0) fL MCH 29.9 (27.0-33.0) pg MCHC 36.0 (31.0-36.0) g/dl RDW 12.5 (11.0-16.0) % Plt Count 167 (160-400) X10*3/uL MPV 11.8 (9.4-12.4) fL Immature Gran % (Auto) 0.5 H (0.0-0.4) % Neut % (Auto) 40.3 L (45-73) % Lymph % (Auto) 45.2 H (20-40) % [place] % (Auto) 9.3 (2-11) % Eos % (Auto) 4.0 (0-4) % Baso % (Auto) 0.7 (0-2) % Lymph # (Auto) 3.9 (1.2-4.9) X10*3/uL [place] # (Auto) 0.8 (0.1-1.2) X10*3/uL Eos # (Auto) 0.4 (0.0-0.4) X10*3/uL Baso # (Auto) 0.1 (0.0-0.2) X10*3/uL Abs Immat Gran (auto) 0.04 H (0.00-0.03) X10*3/uL Absolute Neuts (auto) 3.5 (2.0-8.3) x10*3/uL Absolute Nucleated RBC 0.000 (0.0-0.012) X10*3/uL Nucleated RBC % (auto) 0.0 (0.0-0.2) /100WBC Sodium 138 (135-145) mmol/L Potassium 3.9 (3.3-5.1) mmol/L Chloride 104 (96-108) mmol/L Carbon Dioxide 26 (22-29) mmol/L Anion Gap 12 (12-20) BUN 9 (9-16) mg/dL Creatinine 1.03 (0.5-1.4) mg/dL Estim Creat Clear Calc 83.8 Estimated GFR > 60 Random Glucose 102 (60-115) mg/dL Calcium 9.5 (8.4-10.2) mg/dL Total Bilirubin 1.3 H (0.0-1.0) mg/dL Direct Bilirubin 0.3 (0.0-0.5) mg/dL AST 27 (5-37) U/L ALT 37 (0-40) U/L Alkaline Phosphatase 53 (39-117) U/L Total Protein 8.1 H (6.5-8.0) g/dL Albumin 4.7 (3.5-5.0) g/dL Lipase 37 (8-78) U/L Radiology Impression Discussion of test interpretation with radiology: I have reviewed the radiologist's reading. External Record Review External record reviewed: Inpatient record, Office record, Outpatient record, Prior outpatient labs, Prior outpatient radiology, Primary care record and Outside ED record Tests considered The following testing was considered but not selected: As above Prescription Management I considered prescription management with: Pain Medication Chronic Conditions Patient?s care impacted by: Hypertension and Other Discharge Plan Discharge Clinical Impression: Low back pain Patient Disposition: Home, Self-Care Instructions: Acute Low Back Pain (ED) Additional Instructions: YOU NEED TO FOLLOW-UP WITH A NEUROSURGEON PLEASE ALSO FOLLOW-UP WITH YOUR PCP. Your pain is likely musculoskeletal Flexeril is a muscle relaxer, take at night as it makes you drowsy, do not drive, drink alcohol, or operate machinery while taking it Naproxen as an anti-inflammatory / pain medication, take with food Lidoderm patches are numbing patches, apply to painful area In addition take Tylenol at home If symptoms persist or worsen, pain becomes unbearable, you developed urinary retention or incontinence, or weakness return to the ED Prescriptions: New acetaminophen [Tylenol Extra Strength] 500 mg tablet 500 mg PO Q6H PRN (Reason: fever or pain) Qty: 14 0RF lidocaine [Lidoderm] 5 % adhesive patch,medicated 1 patch topical DAILY MDD remove after 12 hours PRN (Reason: pain) Qty: 30 0RF Rx Instructions: leave on most painful area for up to 12 hrs naproxen 500 mg tablet 500 mg PO BID PRN (Reason: pain) 10 Days Qty: 20 0RF cyclobenzaprine 5 mg tablet 5 mg PO Q8H PRN (Reason: pain (scale score 7-10)) 5 Days Qty: 14 0RF No Action atorvastatin 40 mg tablet 40 mg PO DAILY Qty: 90 3RF amlodipine 5 mg tablet 5 mg PO DAILY Qty: 90 3RF metoprolol succinate [Toprol XL] 25 mg tablet extended release 24 hr 25 mg PO DAILY Qty: 30 5RF (DME) blood pressure test kit-large [[employer] Versa Arm BP Monitor] Kit See Rx Instructions .Route Qty: 1 0RF Rx Instructions: As directed Referrals: [facility] Thor[facility] Surgeons [Provider Group] [facility] [Outside] Josh Del Angel MD [Primary Care Provider] -
[2023-04-08 15:53] LABS: MANUAL DIFF FLAG NO
[2023-04-08 15:55] LABS: Basophils Absolute Auto 0.1 X10*3/uL (0.0-0.2); Basophils Percent Auto 0.7 % (0-2); Eosinophils Absolute Auto 0.4 X10*3/uL (0.0-0.4); Hemoglobin 15.5 g/dl (14.0-18.0); Imm Gran Abs Auto 0.04 X10*3/uL (0.00-0.03); Imm Gran Pct Auto 0.5 % (0.0-0.4); Lymphocytes Absolute Auto 3.9 X10*3/uL (1.2-4.9); Lymphocytes Percent Auto 45.2 % (20-40); Mean Corpuscular Hemoglobin 29.9 pg (27.0-33.0); Mean Platelet Volume 11.8 fL (9.4-12.4); Monocytes Absolute Auto 0.8 X10*3/uL (0.1-1.2); Monocytes Percent Auto 9.3 % (2-11); Neutrophils Absolute Auto 3.5 x10*3/uL (2.0-8.3); Neutrophils Percent Auto 40.3 % (45-73); Platelet Count 167 X10*3/uL (160-400); Red Blood Count 5.18 X10*6/uL (4.60-5.80); Red Cell Distribution Width 12.5 % (11.0-16.0); White Blood Count 8.7 X10*3/uL (4.8-10.8)
[2023-04-08 16:10] LABS: Alanine Aminotransferase 37 U/L (0-40); Albumin Level 4.7 g/dL (3.5-5.0); Alkaline Phosphatase 53 U/L (39-117); Anion Gap 12 (12-20); Aspartate Amino Transferase 27 U/L (5-37); Bilirubin Direct 0.3 mg/dL (0.0-0.5); Bilirubin Total 1.3 mg/dL (0.0-1.0); Blood Urea Nitrogen 9 mg/dL (9-16); Calcium 9.5 mg/dL (8.4-10.2); Carbon Dioxide 26 mmol/L (22-29); Chloride 104 mmol/L (96-108); Creatinine Clr Calc Pharmacy 83.8; Estimated Glomerular Filt Rate > 60; Glucose Random 102 mg/dL (60-115); Lipase 37 U/L (8-78); Potassium 3.9 mmol/L (3.3-5.1); Sodium 138 mmol/L (135-145); Total Protein 8.1 g/dL (6.5-8.0)
[2023-04-08 23:33] VITALS: BP 145/75; PULSE 76; RESP 20; TEMP 37.2; O2SAT 98
== END 2023-04-09 00:28 | disposition home or self-care (01) ==
PROVIDERS: Physician Assistant Medical; Emergency Provider Student in an Organized Health Care Education/Training Program; PCP Family Medicine
DX: M54.50 Low back pain, unspecified (principal); R10.9 Unspecified abdominal pain; Z79.899 Other long term (current) drug therapy
CPT/HCPCS: 36415; 80048; 80076; 83690; 85025; 99283; 99284

== ENCOUNTER 2023-04-17 11:50 | Outpatient (AMB) | payer OTHER, SELFPAY ==
[2023-04-17 13:31] VITALS: BP 146/80; PULSE 96; TEMP 36.3; O2SAT 98; BMI 28.6
--- NOTE | 2023-04-17 13:31 | MHC.OFFWIV ---
Intake Vital Signs 04/17/23 13:31 Height 5 ft 8 in Weight 188 lb BMI 28.6 BP 146/80 H Blood Pressure Location Rt brachial Position Sitting Pulse 96 Pulse Source Pulse Oximeter Temp 97.3 F Temp Source Temporal Artery Scan Pulse Oximetry (%) 98 Oxygen Delivery Method Room Air Intake Visit Reasons: EST/dry cough /[phone] Intake Note: pt is here today for dry cough started 2 days ago Patient Tobacco Use Status: Never used Tobacco Allergies No Known Allergies [No Known Allergies*] Allergy (Verified 04/17/23 13:31) Do you need a note to return to daycare/school/sports/work: No HPI HPI Comments History of Present Illness Details This is a 58-year-old male who presents to the office today for sick visit. Patient complaining of a dry cough x 3 days. He denies any fevers/chills or sputum production. He denies any shortness of breath. He does report some sinus/nasal congestion and headaches. PFSH Medical History Loud snoring Somnolence, daytime Retrognathia Enlarged thoracic aorta Hyperlipidemia Bifascicular block Surgical History Hx of colonoscopy Social History Housing: House Patient Tobacco Use Status: Never used Tobacco e-Cigarette/Vaping Use: Never Used Second Hand Smoke Exposure: No service: No Current occupational status: employed and unemployed Current occupational exposures/hazards: No Cognitive needs: No Hearing needs: No Vision needs: No Review of Systems Const All systems reviewed & are unremarkable except as noted in HPI and below Reports no additional complaints Eyes Reports no additional complaints ENT Reports no additional complaints Card Reports no additional complaints Resp Reports no additional complaints GI Reports no additional complaints Reports no additional complaints Musc Reports no additional complaints Skin/Breast Reports system reviewed and no additional complaints, except as documented Neuro Reports no additional complaints Psych Reports no additional complaints Endo Reports no additional complaints Uday/Lymph Reports no additional complaints Aller/Immun Reports no additional complaints Physical Exam Vital Signs: Last Vital Signs Temp 97.3 F 04/17/23 13:31 Pulse 96 04/17/23 13:31 BP 146/80 H 04/17/23 13:31 Pulse Ox 98 04/17/23 13:31 Oxygen Delivery Method Room Air 04/17/23 13:31 BMI result Body Mass Index 28.6 Const Other: Vital signs reviewed. Constitutional: Non-toxic appearing. No acute distress. Well-developed and well-nourished. HEENT: Normocephalic and atraumatic. Skin: Warm and dry. No rashes or lesions noted. Neck: Full and painless range of motion. No cervical lymphadenopathy. Cardio: Regular rate and rhythm. No murmurs, gallops, or rubs. No lower extremity edema. No JVD. Pulmonary: No respiratory distress. No accessory muscle usage. Clear to auscultation bilaterally without wheezing, crackles, or rhonchi. Gastrointestinal: Soft, nontender, and nondistended in all 4 quadrants. Musculoskeletal: Normal range of motion in joints throughout the body. No deformity or other signs of injury. Neuro: Alert and oriented x4. Cranial nerves 2-12 grossly intact. No focal deficits appreciated. Psych: Normal mood and affect. Assessment & Plan Assessment & Plan (1) Cough: Code(s): R05.9 - Cough, unspecified Plan: This is a 58-year-old male presenting to the office today complaining of a dry cough x 3 days. On physical examination, his lungs are clear to auscultation bilaterally and his vital signs are stable and he is overall non-toxic appearing. Patient states he has been treated with an albuterol inhaler in the past but there are no records that he has had an inhaler. I attempted to order an inhaler for him but a prior authorization is needed, which can not be done at the walk-in clinic. I attempted to call the patient to let him know that the abuterol inhaler cannot be sent but the patient didn't answer. A HIPAA compliant voicemail was left with a callback number. Patient was given a prescription for PO benzonatate 200 mg three times daily as needed for cough. I have very low suspicion for acute infectious process such as pneumonia given no sputum production or fevers/chills. There is no expiratory wheezing to suggest acute bronchitis or asthma/COPD exacerbation. Patient very likely has a viral URI with cough. Recommended symptomatic management including rest, increased fluids, advil/tylenol for pain/fever, and over the counter throat lozenges/decongestants. Patient advised to follow up here or go to the emergency room for worsening/persistent symptoms. Patient verbalized understanding and is agreeable with the plan. Medications: New benzonatate 200 mg PO TID PRN 30 caps 0RF cough Coding Level of Care Code Est Pt Level 3 (54667) Diagnoses Cough R05.9
== END 2023-04-17 14:01 | disposition home or self-care (01) ==
PROVIDERS: PCP Family Medicine; Visit Provider Physician Assistant Medical
DX: R05.9 Cough, unspecified (principal)
CPT/HCPCS: 99213

== ENCOUNTER 2023-05-08 10:33 | Outpatient (AMB) | payer OTHER, SELFPAY ==
[2023-05-08 10:38] VITALS: BP 122/78; PULSE 73; O2SAT 99; BMI 28.7
--- NOTE | 2023-05-08 10:38 | MHC.PC.OV ---
Vital Signs 05/08/23 10:38 Height 5 ft 8 in Weight 189 lb BMI 28.7 BP 122/78 Blood Pressure Location Lt brachial Position Sitting Pulse 73 Pulse Source Pulse Oximeter Pulse Oximetry (%) 99 Oxygen Delivery Method Room Air Intake Visit Reasons: [facility]-04/09-Abdominal pain-NEEDS PHQ9 Intake Note: Patient is here for follow up on [facility] abdominal pain. Patient would like Neurology referral, too for a tumor. Allergies No Known Allergies [No Known Allergies*] Allergy (Verified 05/08/23 10:39) Tobacco use date assessed: 05/08/23 Dental Screening Dental Screen Date: 05/08/23 Did you have a dental visit in the last 12 months?: Yes Did you have a dental problem in the last 6 months where you did not have access to dental care?: No Was dental information given to patient?: Patient has dentist HPI [facility]-04/09-Abdominal pain-NEEDS PHQ9 HPI Details 58 y/o male presents to f/u ED visit with complaints of R-sided lower back pain radiating to R lower abdomen, Labs were reassuring. Pt had left before CT and had recommended MRI. D/Dx: worsening/encroaching tumor vs sciatica vs MSK pain/strain vs ?renal stone. 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 Pt does report weakness on his lower extremities and numbness of back of leg and thigh. He denies any loss of urine/loss of stool. [facility] Medical History Loud snoring Somnolence, daytime Retrognathia Enlarged thoracic aorta Hyperlipidemia Bifascicular block Surgical History Hx of colonoscopy Social History Housing: House Patient Tobacco Use Status: Never used Tobacco e-Cigarette/Vaping Use: Never Used Second Hand Smoke Exposure: No service: No Current occupational status: employed Current occupational exposures/hazards: No Cognitive needs: No Hearing needs: No Vision needs: No Questionnaire Thrive Questionnaire Date Thrive assessed: 06/21/21 AZAM-7 AMB Questionnaire AZAM-7 Date AZAM - 7 assessed: 11/01/21 Source: Developed by Drs. Bert Finney, Elana Massey, Heriberto Powell and colleagues, with an educational fernando from [employer]. Review of Systems Const Denies chills, Denies fatigue, Denies fever(s), Denies headache(s) and Denies weakness ENT Denies dizziness and Denies headache(s) Card Denies dyspnea Resp Denies cough, Denies dyspnea, Denies wheezing and Denies other (shortness of breath) Musc Denies numbness and Denies tingling Neuro Denies dizziness, Denies headache(s), Denies numbness, Denies tingling and Denies weakness Psych Denies anxiety and Denies depression Endo Denies fatigue Aller/Immun Denies wheezing Physical exam (Primary Care) Vital Signs: Last Vital Signs Pulse 73 05/08/23 10:38 BP 122/78 05/08/23 10:38 Pulse Ox 99 05/08/23 10:38 Oxygen Delivery Method Room Air 05/08/23 10:38 BMI result Body Mass Index 28.7 Tobacco/Smoking Status: Tobacco use Status Tobacco use date assessed 05/08/23 05/08/23 10:42 Patient Tobacco Use Status Never used Tobacco 05/08/23 10:42 e-Cigarette/Vaping Use Never Used 05/08/23 10:42 Thrive Assessment: Date of Thrive Assessment Date Thrive assessed 06/21/21 05/08/23 10:42 Const General: well developed; No acute distress Nutritional Appearance: well nourished Orientation/consciousness: patient oriented x3 HENMT Head: Yes normocephalic and Yes atraumatic Eyes General: appearance normal, both eyes and all related structures Pupils: Equal, round and reactive pupils present EOM: EOMs intact bilaterally Resp Effort & Inspection: normal respiratory effort Neuro Other: 3/5 strength RLE 5/5 strength LLE 3+ patellar tendon reflex on RLE General: patient oriented x3 and No gait normal Cranial nerves: Yes Equal, round and reactive pupils present Psych Affect: normal affect Results AMB Urinalysis Dipstick UR Leukocytes Negative Last Edit by Marlena Shoemaker CMA on 05/08/23 10:59 UR Nitrite Negative Last Edit by Marlena Shoemaker CMA on 05/08/23 10:59 UR Urobilinogen Normal Last Edit by Marlena Shoemaker CMA on 05/08/23 10:59 UR Protein Negative Last Edit by Marlena Shoemaker, FOOD AND BEVERAGE MANAGER on 05/08/23 10:59 UR Ph 6.0 Last Edit by Marlena Shoemaker, FOOD AND BEVERAGE MANAGER on 05/08/23 10:59 UR Blood Negative Last Edit by Marlena Shoemaker, FOOD AND BEVERAGE MANAGER on 05/08/23 10:59 UR Specific [place] 1.015 Last Edit by Marlena Shoemaker, FOOD AND BEVERAGE MANAGER on 05/08/23 10:59 UR Ketone Negative Last Edit by Marlena Shoemaker, FOOD AND BEVERAGE MANAGER on 05/08/23 10:59 UR Bilirubin Negative Last Edit by Marlena Shoemaker, FOOD AND BEVERAGE MANAGER on 05/08/23 10:59 UR Glucose Negative Last Edit by Marlena Shoemaker, FOOD AND BEVERAGE MANAGER on 05/08/23 10:59 Assessment and Plan Assessment & Plan (1) Lower extremity weakness: Code(s): R29.898 - Other symptoms and signs involving the musculoskeletal system Plan: Significant?lower?extremity?weakness?at?right?leg (3/5 strength)?which?is?worsening?according?to?patient. 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 - Neoplasm of unspecified behavior of endocrine glands and other parts of nervous system Plan: As?above (3) Back pain: Code(s): M54.9 - Dorsalgia, unspecified Plan: As?above,?patient?has?back?pain?at?right?lower?back?which?radiates?around?to?right?abdomen?and?anterior?and?posterior?thigh Not?associated?with?eating?or?defecation?and?no?blood?in?urine History?of?spinal?cord?tumor-see?above (4) Abdominal pain: Code(s): R10.9 - Unspecified abdominal pain Plan: As?above (5) Hyperreflexia: Code(s): R29.2 - Abnormal reflex Plan: Mild, unilateral?at?right?patellar?tendon.??As?above,?concern?for?encroaching?spinal?cord?tumor Orders: Orders Complete Blood Count Auto Diff Today R29.898 - Other symptoms and signs involving the musculoskeletal system, Z00.00 - Encounter for general adult medical examination without abnormal findings AMB Urinalysis Dipstick Today M54.9 - Dorsalgia, unspecified, R10.9 - Unspecified abdominal pain MR lumbar spine wo/w con Today D49.7 - Neoplasm of unspecified behavior of endocrine glands and other parts of nervous system, R29.898 - Other symptoms and signs involving the musculoskeletal system MR sacrum wo/w con Today D49.7 - Neoplasm of unspecified behavior of endocrine glands and other parts of nervous system, R29.898 - Other symptoms and signs involving the musculoskeletal system Comprehensive Met. Panel Today R29.898 - Other symptoms and signs involving the musculoskeletal system UA and rflx microscopic Today R29.898 - Other symptoms and signs involving the musculoskeletal system, Z00.00 - Encounter for general adult medical examination without abnormal findings Referrals Neurosurgery Referral D49.7 - Neoplasm of unspecified behavior of endocrine glands and other parts of nervous system, R29.898 - Other symptoms and signs involving the musculoskeletal system Coding Level of Care Code Est Pt Level 4 (84951) Diagnoses Lower extremity weakness R29.898 Spinal cord tumor D49.7 Back pain M54.9 Abdominal pain R10.9 Hyperreflexia R29.2
== END 2023-05-08 11:07 | disposition home or self-care (01) ==
PROVIDERS: PCP Family Medicine; Visit Provider Family Medicine
DX: R29.898 Other symptoms and signs involving the musculoskeletal system (principal); D49.7 Neoplasm of unspecified behavior of endocrine glands and other parts of nervous system; M54.9 Dorsalgia, unspecified; R10.9 Unspecified abdominal pain; R29.2 Abnormal reflex
CPT/HCPCS: 81002; 99214

== ENCOUNTER 2023-05-08 11:16 | Outpatient (REF) | payer OTHER, SELFPAY ==
[2023-05-08 14:27] LABS: MANUAL DIFF FLAG NO
[2023-05-08 14:33] LABS: Appearance Urine Clear; Color Urine Yellow; Glucose Urine UA Negative (Negative); Leukocyte Esterase Urine Negative (Negative); Nitrite Urine Negative (Negative); PH 6.5 (5.0-9.0); Urine Blood Negative (Negative); Urine Ketones Negative (Negative); Urine Protein Negative (Neg-Trace)
[2023-05-08 14:34] LABS: Basophils Absolute Auto 0.1 X10*3/uL (0.0-0.2); Basophils Percent Auto 0.8 % (0-2); Eosinophils Absolute Auto 0.3 X10*3/uL (0.0-0.4); Eosinophils Percent Auto 4.4 % (0-4); Hematocrit 40.3 % (42.0-52.0); Hemoglobin 14.3 g/dl (14.0-18.0); Imm Gran Abs Auto 0.03 X10*3/uL (0.00-0.03); Imm Gran Pct Auto 0.5 % (0.0-0.4); Lymphocytes Absolute Auto 2.7 X10*3/uL (1.2-4.9); Lymphocytes Percent Auto 43.5 % (20-40); Mean Corpuscular HGB Conc 35.5 g/dl (31.0-36.0); Mean Corpuscular Hemoglobin 29.7 pg (27.0-33.0); Mean Corpuscular Volume 83.6 fL (80.0-98.0); Mean Platelet Volume 12.2 fL (9.4-12.4); Monocytes Absolute Auto 0.5 X10*3/uL (0.1-1.2); Neutrophils Absolute Auto 2.6 x10*3/uL (2.0-8.3); Neutrophils Percent Auto 42.8 % (45-73); Platelet Count 149 X10*3/uL (160-400); Red Blood Count 4.82 X10*6/uL (4.60-5.80); Red Cell Distribution Width 12.7 % (11.0-16.0); White Blood Count 6.1 X10*3/uL (4.8-10.8)
[2023-05-08 14:55] LABS: Alanine Aminotransferase 35 U/L (0-40); Albumin Level 4.4 g/dL (3.5-5.0); Alkaline Phosphatase 51 U/L (39-117); Anion Gap 11 (12-20); Aspartate Amino Transferase 22 U/L (5-37); Bilirubin Total 0.9 mg/dL (0.0-1.0); Blood Urea Nitrogen 8 mg/dL (9-16); Calcium 8.9 mg/dL (8.4-10.2); Carbon Dioxide 27 mmol/L (22-29); Chloride 104 mmol/L (96-108); Cholesterol 160 mg/dL (<200); Estimated Glomerular Filt Rate > 60; Glucose Random 137 mg/dL (60-115); HDL Cholesterol 39 mg/dL (>40); LDL Cholesterol Calculated 90 mg/dL (<100); Potassium 3.8 mmol/L (3.3-5.1); Sodium 138 mmol/L (135-145); Total Protein 7.3 g/dL (6.5-8.0); Triglycerides 159 mg/dL (<150)
== END 2023-05-08 11:17 | disposition home or self-care (01) ==
LOC: HO.WFDLDS 11:16
PROVIDERS: Internal Medicine Cardiovascular Disease; Visit Provider Family Medicine
DX: Z00.00 Encounter for general adult medical examination without abnormal findings (principal); R29.898 Other symptoms and signs involving the musculoskeletal system; I25.10 Atherosclerotic heart disease of native coronary artery without angina pectoris; I77.89 Other specified disorders of arteries and arterioles; D49.7 Neoplasm of unspecified behavior of endocrine glands and other parts of nervous system
CPT/HCPCS: 36415; 80053; 80061; 81003; 85025

== ENCOUNTER 2023-05-21 09:42 | Outpatient (AMB) | payer OTHER, SELFPAY ==
--- NOTE | 2023-05-21 09:44 | A.OFFPC_ITS ---
Vital Signs 05/21/23 09:46 Height 5 ft 8 in Weight 190 lb 2 oz BMI 28.9 BP 142/82 H Blood Pressure Location Lt brachial Position Sitting Pulse 97 Pulse Source Pulse Oximeter Pulse Oximetry (%) 99 Oxygen Delivery Method Room Air Intake Visit Reasons: f/u LE weakness, MRI Intake Note: Patient is here for lower extremity weakness, and MRI. He woulsd also like to be tested for Covid, chills, hot feeling, congestion, yellow mucous coming from nose, sore throat and glands and dry cough. Allergies No Known Allergies [No Known Allergies*] Allergy (Verified 05/21/23 09:49) Medication List - Last Reconciled 05/21/23 by Josh Del Angel MD acetaminophen (Tylenol Extra Strength) 500 mg PO Q6H PRN amlodipine 5 mg PO DAILY atorvastatin 40 mg PO DAILY benzonatate 200 mg PO TID PRN blood pressure test kit-large ([employer] Versa Arm BP Monitor kit) As directed lidocaine 5% (Lidoderm) 1 patch topical DAILY PRN MDD remove after 12 hours metoprolol succinate ER 25 mg PO DAILY naproxen 500 mg PO BID PRN 10 days Tobacco use date assessed: 05/21/23 HPI f/u LE weakness, MRI HPI Details 58 y/o male presents to f/u RLE weakness in a pt with hx of spinal cord tumor and partial resection in 2004. MRI ordered. Had referred to neuro surgery. Pt would like to get tested for covid. He reports symptoms of chills, congestion, yellow mucous coming from his nose, a sore throat and a dry cough. He notes his family went on a trip and everyone is sick. He reports symptoms x4-5 days. He reports one side of his ear feels blocked. He has a MRI scheduled on the . Neurosurgery has not contacted him yet. Blood pressure today 142/82. He is on amlodipine 5mg and metoprolol 25mg daily. He is feeling unwell today. HPI Comments History of Present Illness Details Documentation assistance for Josh Del Angel MD, was provided by Arthur Engel, Environmental Projects Advisor on 05/21/2023 10:27 AM SALVADOR. Demetrio, Dr. Del Angel, have read, observed, and verified documentation. [facility] Medical History Loud snoring Somnolence, daytime Retrognathia Enlarged thoracic aorta Hyperlipidemia Bifascicular block Surgical History Hx of colonoscopy Social History Housing: House Patient Tobacco Use Status: Never used Tobacco e-Cigarette/Vaping Use: Never Used Second Hand Smoke Exposure: No service: No Current occupational status: employed Current occupational exposures/hazards: No Cognitive needs: No Hearing needs: No Vision needs: No Questionnaire Thrive Questionnaire Date Thrive assessed: 06/21/21 AZAM-7 AMB Questionnaire AZAM-7 Date AZAM - 7 assessed: 11/01/21 Source: Developed by Drs. Bert Finney, Elana Massey, Heriberto Powell and colleagues, with an educational fernando from [employer]. Review of Systems Const Reports chills, Denies fatigue, Denies headache(s) and Denies weakness ENT Denies dizziness, Denies headache(s), Reports nasal congestion, Reports nasal discharge and Reports sore throat Card Denies dyspnea Resp Reports cough, Denies dyspnea and Denies wheezing Musc Denies numbness and Denies tingling Neuro Denies dizziness, Denies headache(s), Denies numbness, Denies tingling and Denies weakness Psych Denies anxiety and Denies depression Endo Denies fatigue Aller/Immun Denies wheezing Physical exam (Primary Care) Vital Signs: Last Vital Signs Pulse 97 05/21/23 09:46 BP 142/82 H 05/21/23 09:46 Pulse Ox 99 05/21/23 09:46 Oxygen Delivery Method Room Air 05/21/23 09:46 BMI result Body Mass Index 28.9 Tobacco/Smoking Status: Tobacco use Status Tobacco use date assessed 05/21/23 05/21/23 09:53 Patient Tobacco Use Status Never used Tobacco 05/21/23 09:53 e-Cigarette/Vaping Use Never Used 05/21/23 09:53 Thrive Assessment: Date of Thrive Assessment Date Thrive assessed 06/21/21 05/21/23 09:53 Const General: well developed; No acute distress Nutritional Appearance: well nourished Orientation/consciousness: patient oriented x3 HENMT Head: Yes normocephalic and Yes atraumatic Eyes General: appearance normal, both eyes and all related structures Pupils: Equal, round and reactive pupils present EOM: EOMs intact bilaterally Resp Effort & Inspection: normal respiratory effort Neuro General: patient oriented x3 and gait normal Cranial nerves: Yes Equal, round and reactive pupils present Psych Affect: normal affect Assessment and Plan Assessment & Plan (1) Viral illness: Code(s): B34.9 - Viral infection, unspecified Plan: Patient?was?traveling?abroad?and?has?returned?with?a?likely?viral?illness?with?n yelena?rhinitis?and?congestion?and?cough?and?fevers. 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 Will?give?him?Flonase (3) Hypertension: Code(s): I10 - Essential (primary) hypertension Plan: Blood?pressure?mildly?elevated?but?patient?is?sick?today. No?changes?to?his?medication?regimen?for?blood?pressure. (4) Lower extremity weakness: Code(s): R29.898 - Other symptoms and signs involving the musculoskeletal system Plan: History?of?spinal?cord?tumor Has?appointment?for?MRI?next?week. Referral?was?made?to?neuro?surgery.??I?gave?him?the?phone?number?for?neurosurger y?and?he?can?call?them?after?his?MRI. Orders: Orders SARS-CoV2/FLU/RSV Today B34.9 - Viral infection, unspecified, Z20.822 - Contact with and (suspected) exposure to COVID-19 Medications: New amoxicillin 500 mg PO Q12H 10 days 20 tabs 0RF fluticasone propionate 50 mcg/actuation (Flonase Allergy Relief) administer into each nostril 1 spray intranasal Q12H 30 days 16 grams 2RF albuterol sulfate 90 mcg/actuation (ProAir HFA) 2 puffs inhalation Q4-6H 30 days PRN 8.5 grams 0RF shortness of breath or wheezing Coding Level of Care Code Est Pt Level 4 (97720) Diagnoses Viral illness B34.9 Left otitis media H66.92 Hypertension I10 Lower extremity weakness R29.898
[2023-05-21 09:46] VITALS: BP 142/82; PULSE 97; O2SAT 99; BMI 28.9
== END 2023-05-21 10:30 | disposition home or self-care (01) ==
PROVIDERS: PCP Family Medicine; Visit Provider Family Medicine
DX: B34.9 Viral infection, unspecified (principal); H66.92 Otitis media, unspecified, left ear; I10 Essential (primary) hypertension; R29.898 Other symptoms and signs involving the musculoskeletal system
CPT/HCPCS: 99214

== ENCOUNTER 2023-05-21 10:25 | Outpatient (REF) | payer OTHER, SELFPAY ==
[2023-05-21 15:34] LABS: Influenza A PCR NEGATIVE (Negative); Influenza B PCR NEGATIVE (Negative); Resp Syncy Virus RNA Qual PCR POSITIVE (Negative); SARS COV2 PCR INHOUSE NEGATIVE (Negative)
== END 2023-05-21 10:26 | disposition home or self-care (01) ==
LOC: HO.LAB 10:25
PROVIDERS: Visit Provider Family Medicine
DX: B34.9 Viral infection, unspecified (principal); Z20.822 Contact with and (suspected) exposure to COVID-19
CPT/HCPCS: 0241U

== ENCOUNTER 2023-05-25 15:24 | Outpatient (REF) | payer OTHER, SELFPAY ==
--- NOTE | ~2023-05-25 | MR_ITS ---
EXAMINATION: MRI sacrum. CLINICAL INFORMATION: Worsening sacral radiculopathy, right lower extremity weakness, evaluate encroaching tumor. COMPARISON: None available. TECHNIQUE: Examination was performed in a high field strength MRI scanner. Pre-contrast multiplanar multisequence MR imaging of the pelvis and sacrum was performed without IV contrast enhancement. Post-contrast axial T1 weighted fat suppressed images of the pelvis were obtained after IV injection of 9 mL Gadavist. FINDINGS: Urinary bladder is well filled with urine. Seminal unremarkable. Multiple diverticula are seen in the descending and sigmoid colon without inflammatory changes. Pelvic fat plane is clean. No pelvic ascites is seen. No abnormally enlarged iliac or inguinal lymph nodes are found. The pelvis and bilateral hips are intact. Bilateral femoral heads and necks show normal signal without focal lesion. No abnormal joint effusion can be seen. The visualized bony pelvis show normal signal. Bilateral sacroiliac joints also appear unremarkable. A T2 hyperintense, T1 hypointense enhancing mass lesion is seen directly inferior to the right sacroiliac joint, measuring 1.9 cm in AP diameter, 1.9 cm in width, 2.5 cm in vertical height. MR/MR sacrum wo/w con IMPRESSION: 1. 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 2. Diverticulosis of the descending and sigmoid colon without inflammatory changes.
--- NOTE | ~2023-05-25 | MR_ITS ---
EXAMINATION: MR LUMBAR SPINE WITHOUT AND WITH CONTRAST CLINICAL INFORMATION: Worsening right lower extremity weakness. COMPARISON: None TECHNIQUE: MRI of the lumbar spine was obtained using routine sequences without and with intravenous contrast. A total of 9 mL Gadavist was intravenously administered. FINDINGS: The lumbar vertebral bodies demonstrate normal heights and alignment. There is disc desiccation at L4-L5 without disc height loss. The remaining disc heights appear preserved. The distal spinal cord appears normal. The conus medullaris terminates normally at the T12-L1 level. There is no abnormal enhancement along the cauda equina nerve roots. The visualized paraspinal muscles and intra-abdominal and pelvic contents are within normal limits. SPINAL LEVELS: L1-L2: No posterior disc abnormality. No spinal canal or neural foraminal stenosis. L2-L3: No posterior disc abnormality. No spinal canal or neural foraminal stenosis. L3-L4: Disc bulging with annular fissuring. Mild facet arthropathy. Small foraminal protrusions contact the exiting left more than right L3 nerve roots. No spinal canal stenosis. L4-L5: Disc bulging with central protrusion and mild facet arthropathy. Bilateral subarticular stenosis with abutment of the traversing left more than right L5 nerve roots. Mild narrowing of the bilateral neural foramina. No spinal canal stenosis. L5-S1: Right hemilaminectomy changes. No posterior disc abnormality. Mild facet arthropathy. No spinal canal or neural foraminal stenosis. MR/MR lumbar spine wo/w con IMPRESSION: 1. At L3-L4 there are small foraminal protrusions which contact the exiting left more than right L3 nerve roots. 2. At L4-L5 there is bilateral subarticular stenosis with abutment of the traversing left more than right L5 nerve roots and mild narrowing of the bilateral neural foramina. 3. At L5-S1 there are right hemilaminectomy changes.
[2023-05-25] MEDS: gadobutroL 10 ML VIAL IVPUSH (16:58)
== END 2023-05-25 15:25 | disposition home or self-care (01) ==
LOC: HO.MRI 15:24
PROVIDERS: Visit Provider Family Medicine
DX: R29.898 Other symptoms and signs involving the musculoskeletal system (principal); D49.7 Neoplasm of unspecified behavior of endocrine glands and other parts of nervous system
CPT/HCPCS: 72158; 72197; A9585

== ENCOUNTER 2023-06-24 09:30 | Outpatient (AMB) | payer OTHER, SELFPAY ==
[2023-06-24 10:16] VITALS: BP 134/78; PULSE 87; O2SAT 98; BMI 29.2
--- NOTE | 2023-06-24 10:16 | A.OFFPC_ITS ---
Vital Signs 06/24/23 10:16 Height 5 ft 8 in Weight 192 lb 6 oz BMI 29.2 BP 134/78 Blood Pressure Location Rt brachial Pulse 87 Pulse Source Pulse Oximeter Pulse Oximetry (%) 98 Oxygen Delivery Method Room Air Intake Visit Reasons: review mri Intake Note: Patient is here to review MRI. Allergies No Known Allergies [No Known Allergies*] Allergy (Verified 06/24/23 10:17) Tobacco use date assessed: 06/24/23 HPI review mri HPI Details 58 y/o male presents to review MRI. 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 [facility] Medical History Loud snoring Somnolence, daytime Retrognathia Enlarged thoracic aorta Hyperlipidemia Bifascicular block Surgical History Hx of colonoscopy Social History Housing: House Patient Tobacco Use Status: Never used Tobacco e-Cigarette/Vaping Use: Never Used Second Hand Smoke Exposure: No service: No Current occupational status: employed Current occupational exposures/hazards: No Cognitive needs: No Hearing needs: No Vision needs: No Questionnaire PHQ-9 Over the last 2 weeks, how often have you been bothered by any of the following problems? 1. Little interest or pleasure in doing things: not at all 2. Feeling down, depressed, or hopeless: not at all 3. Trouble falling or staying asleep, or sleeping too much: not at all 4. Feeling tired or having little energy: not at all 5. Poor appetite or overeating: not at all 6. Feeling bad about yourself - or that you are a failure or have let yourself or your family down: not at all 7. Trouble concentrating on things, such as reading the newspaper or watching television: not at all 8. Moving or speaking so slowly that other people could have noticed. Or the opposite - being so fidgety or restless that you have been moving around a lot more than usual: not at all 9. Thoughts that you would be better off or of hurting yourself in some way: not at all Total score: 0 Source: Developed by Drs. Bert Finney, Elana Massey, Heriberto Powell and colleagues, with an educational fernando from [employer]. Thrive Questionnaire Date Thrive assessed: 06/24/23 I am a: Patient What is your living situation today?: I have a steady place to live Within the past 12 months, did the food you bought not last and you didn't have the money to get more?: Never true Within the past 12 months, did you worry whether your food would run out before you got money to buy more?: Never true Do you have trouble getting transportation to medical appointments?: No Do you have trouble paying your heating and electricity bill?: No Do you have trouble taking care of your child, family member or friend?: No Do you have trouble with day-to-day activities such as bathing, preparing meals, shopping, managing finances, etc.?: No Are you currently unemployed and looking for a job?: No Are you interested in more education?: Yes THRIVE Score: 0 AUDIT C Alcohol Use Questionnaire (AUDIT-C) 1. How often do you have a drink containing alcohol?: Never 3. How often do you have six or more drinks on one occasion?: Never Total Score: 0 AZAM-7 AMB Questionnaire AZAM-7 Date AZAM - 7 assessed: 06/24/23 Feeling nervous, anxious, or on edge: 0 = Not at all Not being able to stop or control worryin = Not at all Worrying too much about different things: 0 = Not at all Trouble relaxin = Not at all Being so restless that it is hard to sit still: 0 = Not at all Becoming easily annoyed or irritable: 0 = Not at all Feeling afraid as if something awful might happen: 0 = Not at all Total AZAM-7 score (0-4 normal; 5-9 mild; 10-14 moderate; 15-21 severe): 0 Source: Developed by Drs. Bert Finney, Elana Massey, Heriberto Powell and colleagues, with an educational fernando from [employer]. ACT Questionnaire In the past 4 weeks, how much of the time did your asthma keep you from getting as much done at work, school or at home?: None of the time During the past 4 weeks, how often have you had shortness of breath?: 1-2 times a week During the past 4 weeks, how often did your asthma symptoms wake you up at night or earlier than usual in the morning?: Once a week During the past 4 weeks, how often have you had to use your rescue inhaler or nebulizer medication?: Not at all How would you rate your asthma control during the past 4 weeks?: Well controlled Score: 21 Review of Systems Const Denies chills, Denies fatigue, Denies fever(s), Denies headache(s) and Denies weakness ENT Denies dizziness and Denies headache(s) Card Denies dyspnea Resp Denies cough, Denies dyspnea, Denies wheezing and Denies other (shortness of breath) Musc Denies numbness and Denies tingling Neuro Denies dizziness, Denies headache(s), Denies numbness, Denies tingling and Denies weakness Psych Denies anxiety and Denies depression Endo Denies fatigue Aller/Immun Denies wheezing Physical exam (Primary Care) Vital Signs: Last Vital Signs Pulse 87 06/24/23 10:16 BP 134/78 06/24/23 10:16 Pulse Ox 98 06/24/23 10:16 Oxygen Delivery Method Room Air 06/24/23 10:16 BMI result Body Mass Index 29.2 Tobacco/Smoking Status: Tobacco use Status Tobacco use date assessed 06/24/23 06/24/23 10:18 Patient Tobacco Use Status Never used Tobacco 06/24/23 10:16 e-Cigarette/Vaping Use Never Used 06/24/23 10:16 PHQ-9: PHQ-9 Score PHQ-9: Total score 0 06/24/23 10:24 Thrive Assessment: Date of Thrive Assessment Date Thrive assessed 06/24/23 06/24/23 10:24 Const General: well developed; No acute distress Nutritional Appearance: well nourished Orientation/consciousness: patient oriented x3 HENMT Head: Yes normocephalic and Yes atraumatic Eyes General: appearance normal, both eyes and all related structures Pupils: Equal, round and reactive pupils present EOM: EOMs intact bilaterally Resp Effort & Inspection: normal respiratory effort Neuro General: patient oriented x3 and gait normal Cranial nerves: Yes Equal, round and reactive pupils present Psych Affect: normal affect Assessment and Plan Assessment & Plan (1) Sacral radiculopathy: Code(s): M54.18 - Radiculopathy, sacral and sacrococcygeal region Plan: Sacral?radiculopathy?with?radiation?into?bilateral?lower?extremities,?right?wors e?than?left MRI?shows?disc?protrusions,?foraminal?stenoses?and?a?sacral?spinal?cord?tumor?at ?level?of?SI?joints. Appears?to?be?benign?spinal?cord?sheath?tumor?or?schwannoma. May?have?mass?effect Referred?to??Cyndee Will?try?some?gabapentin?at?bedtime?for?pain?in?his?legs?while?he?is?trying?to?s leep. (2) Back pain: Code(s): M54.9 - Dorsalgia, unspecified Plan: As?above (3) Abnormal MRI: Code(s): R93.89 - Abnormal findings on diagnostic imaging of other specified body structures Plan: As?above Orders: Referrals Neurosurgery Referral D49.7 - Neoplasm of unspecified behavior of endocrine glands and other parts of nervous system, M54.18 - Radiculopathy, sacral and sacrococcygeal region Chiropractic Referral M54.18 - Radiculopathy, sacral and sacrococcygeal region Medications: New gabapentin 300 mg PO BEDTIME 30 days 30 caps 2RF Coding Level of Care Code Est Pt Level 3 (44748) Diagnoses Sacral radiculopathy M54.18 Back pain M54.9 Abnormal MRI R93.89
== END 2023-06-24 10:51 | disposition home or self-care (01) ==
PROVIDERS: PCP Family Medicine; Visit Provider Family Medicine
DX: M54.18 Radiculopathy, sacral and sacrococcygeal region (principal); M54.9 Dorsalgia, unspecified; R93.89 Abnormal findings on diagnostic imaging of other specified body structures
CPT/HCPCS: 99213

== ENCOUNTER 2023-07-01 16:00 | Outpatient (AMB) | payer OTHER, SELFPAY ==
[2023-07-01 16:04] VITALS: BP 160/92; PULSE 70; O2SAT 99; BMI 29.3
--- NOTE | 2023-07-01 16:04 | A.OFFVIS_ITS ---
Intake Vital Signs 07/01/23 16:04 Height 5 ft 8 in Weight 192 lb 14.472 oz BMI 29.3 BP 160/92 H Blood Pressure Location Lt brachial Position Sitting Pulse 70 Pulse Source Pulse Oximeter Pulse Oximetry (%) 99 Oxygen Delivery Method Room Air Intake Visit Reasons: misha Intake Note: pt is here for follow up of MISHA. He feels the machine is possibly not working properly. Adolescent Medicine Specialist Required: No Allergies No Known Allergies [No Known Allergies*] Allergy (Verified 07/01/23 16:32) Medication List - Last Reconciled 07/01/23 by Chirag Baker MD acetaminophen (Tylenol Extra Strength) 500 mg PO Q6H PRN albuterol sulfate 90 mcg/actuation (Ventolin HFA) 2 puffs inhalation Q4-6H PRN 30 days albuterol sulfate 90 mcg/actuation (ProAir HFA) 2 puffs inhalation Q4-6H PRN 30 days amlodipine 5 mg PO DAILY atorvastatin 40 mg PO DAILY benzonatate 200 mg PO TID PRN blood pressure test kit-large ([employer] Versa Arm BP Monitor kit) As directed fluticasone propionate 50 mcg/actuation (Flonase Allergy Relief) 1 spray intranasal Q12H 30 days gabapentin 300 mg PO BEDTIME 30 days lidocaine 5% (Lidoderm) 1 patch topical DAILY PRN MDD remove after 12 hours metoprolol succinate ER 25 mg PO DAILY naproxen 500 mg PO BID PRN 10 days Do you need a note to return to daycare/school/sports/work: No HPI misha HPI Details This 58 years old gentleman, was last seen by me on 12/17/2022, in relation to his excessive snoring and poor sleep at night. He underwent polysomnogram study on 01/08/2023 and was found to have moderately severe obstructive sleep apnea with nocturnal hypoxemia. He was prescribed the CPAP device with auto PAP mode, pressure setting of 6-16 cm. He did use CPAP for a while in the beginning, but then has not used it. Regularly He claims that his machine was generating erratic type of pressure, And he did not tolerate he change the mask a few times without any improvement. So basically he has not been using the CPAP device, for the last 3 months or so. Today he stopped the office and claiming that his CPAP machine is defect and he will like to have a new device. [facility] Medical History (Updated 07/01/23 @ 16:43 by Chirag Baker MD) MISHA (obstructive sleep apnea) Loud snoring Somnolence, daytime Retrognathia Enlarged thoracic aorta Hyperlipidemia Bifascicular block Surgical History Hx of colonoscopy Social History Housing: House Patient Tobacco Use Status: Never used Tobacco e-Cigarette/Vaping Use: Never Used Second Hand Smoke Exposure: No service: No Current occupational status: employed Current occupational exposures/hazards: No Cognitive needs: No Hearing needs: No Vision needs: No Review of Systems Const All systems reviewed & are unremarkable except as noted in HPI and below Reports snoring Eyes Reports no additional complaints ENT Reports no additional complaints Card Denies chest pain, Denies irregular heart rhythm, Denies leg edema and Denies dyspnea Resp Denies dyspnea, Reports snoring and Denies wheezing GI Reports no additional complaints Reports no additional complaints Musc Reports back pain (Mild) Skin/Breast Reports system reviewed and no additional complaints, except as documented Neuro Reports no additional complaints Psych Reports no additional complaints Endo Reports no additional complaints Aller/Immun Denies wheezing Physical Exam Vital Signs: Last Vital Signs Pulse 70 07/01/23 16:04 BP 160/92 H 07/01/23 16:04 Pulse Ox 99 07/01/23 16:04 Oxygen Delivery Method Room Air 07/01/23 16:04 BMI result Body Mass Index 29.3 Const General: cooperative, comfortable, no acute distress, alert, awake and well groomed Nutritional Appearance: overweight Orientation/consciousness: patient oriented x3 Limitations: no limitations HEENT General nose exam: nasal polyps and No nasal discharge present Face and sinus: Yes sinuses nontender Mouth: oropharynx abnormals (mallampati class=3) Throat: Yes posterior oropharynx normal and Yes other (retroganthia of the lower jaw.) Eyes General: appearance normal, both eyes and all related structures Neck Neck: Yes trachea midline, Yes supple and Yes no JVD Thyroid: Thyroid normal Chest Chest palpation & inspection: normal inspection of the chest Resp Effort & Inspection: normal respiratory effort Auscultation: clear to auscultation bilaterally Cardio Jugular venous distension: no JVD Palpation: normal PMI Rate: regular rate Rhythm: regular rhythm Heart sounds: S1 normal heart sound present, S2 normal heart sound present, no click, no gallops, no murmurs and no rubs Peripheral pulses: Peripheral pulses 2+ throughout GI Palpation (GI): Soft to palpation, Tenderness to palpation present (GI), No hepatosplenomegaly present and Palpable mass present Auscultation: normal bowel sounds Back/Spine/Pelvis Thoracic/Lumbar Spine: thoracic and lumbar spine normal to inspection Skin General skin exam: no rashes or lesions noted Neuro General: patient oriented x3 Cranial nerves: Yes CN's II-XII intact bilaterally Extrem General: Yes no clubbing, cyanosis or edema Psych Speech and movement: Normal speech and movement present Results Reviewed Results Reviewed: Compliance report for the last 120 days is reviewed and he had used only for 10 days in the beginning, but all those days it was less than 4 hours per night. Two thousand twenty-three he has not used at all Assessment & Plan Assessment & Plan (1) Loud snoring: Comment: LOUD SNORING AT NIGHT again part of obstructive sleep apnea. Code(s): R06.83 - Snoring Plan: Talked to him at length and I explained to him that he needs to use CPAP re gularly at night. (2) Retrognathia: Comment: Retrognathia of the lower jaw, along with regression of the chin, seems to be the underlying cause of his sleep apnea. Code(s): M26.19 - Other specified anomalies of jaw-cranial base relationship Plan: He is a confirmed case of obstructive sleep apnea. As noted above he needs to use CPAP every night. (3) MISHA (obstructive sleep apnea): Comment: Moderately severe MISHA was confirmed by sleep study on 01/08/2023 Code(s): G47.33 - Obstructive sleep apnea (adult) (pediatric) Plan: He was provided with CPAP device. With auto PAP mode and pressure setting of 6-16 cm. He has not use more than 10 nights in the last 4 months. * he is claiming that he needs a new mask, and also claims that the pressure in the machine is erratic. And he did not use the CPAP machine thinking that it is defective. We have given him the contact number and the office address of [facility], advised him to take the machine and get it checked. I stress that he should start using the machine regularly every night, and we will need to check the compliance in 4 weeks from now. (4) Uncontrolled hypertension: Comment: I have reviewed the note of Dr. 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 And Parker continues to on controlled hypertension. This is definitely contributed by un-treated MISHA. Code(s): I10 - Essential (primary) hypertension Plan: Patient is re-educated and stress that he should use CPAP every night regularly Coding Level of Care Code Est Pt Level 3 (95370) Diagnoses Loud snoring R06.83 Retrognathia M26.19 MISHA (obstructive sleep apnea) G47.33 Uncontrolled hypertension I10
== END 2023-07-01 16:24 | disposition home or self-care (01) ==
PROVIDERS: PCP Family Medicine; Visit Provider Internal Medicine
DX: R06.83 Snoring (principal); M26.19 Other specified anomalies of jaw-cranial base relationship; G47.33 Obstructive sleep apnea (adult) (pediatric); I10 Essential (primary) hypertension
CPT/HCPCS: 99213

== ENCOUNTER → 2023-07-01 16:00 | Outpatient (BNVA) | payer OTHER, SELFPAY | PROVIDERS: PCP Family Medicine; Visit Provider Internal Medicine | DX: G47.33 Obstructive sleep apnea (adult) (pediatric) (principal); R06.83 Snoring; M26.19 Other specified anomalies of jaw-cranial base relationship; I10 Essential (primary) hypertension | CPT/HCPCS: 99212 ==

== ENCOUNTER 2023-09-18 10:01 | Outpatient (AMB) | payer OTHER, SELFPAY ==
--- NOTE | 2023-09-18 10:22 | A.SPINEOV_ITS ---
Intake Visit Reasons: Radiculopathy, sacral and sacrococcygeal region Intake Note: Mr. Avendano is here today c/o back pain Battery Test Engineer Required: No Allergies No Known Allergies [No Known Allergies*] Allergy (Verified 09/18/23 10:28) Assessment & Plan Assessment & Plan (1) Schwannoma: Code(s): D36.10 - Benign neoplasm of peripheral nerves and autonomic nervous system, unspecified Category: Medical Plan Dear Dr Del Angel Thank you for referring Mr Avendano to our office today. 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 It sounds like the tumor was in the S1 foramen extending down into the retroperitoneal space a ccording to the patient. It took a significant amount of time and unfortunately was unable to be completely debulked secondary to the intertwining of the nervous structures and he has been left with feelings weakness in his leg and numbness. He also had a preoperative pain in his leg which did get better after surgery but now seems to be coming back full force. It is aggravated with standing and walking and moving around but he also feels that at night. It goes down his low back into his posterior thigh into his calf. It is very aggravating in his getting to the point now where it is extremely uncomfortable. He is looking to reconnect with the neurosurgeon to see if there has been some growth to explain his symptoms. No cauda equina symptoms. He has been managing the pain with Tylenol. PMH: Reports he is otherwise healthy no major medical problems outside of some hypertension. Social hx: He does not smoke, drink or use any recreational drugs Medications: Amlodipine, atorvastatin, benzonatate, albuterol, naproxen Allergies: No drug allergies reported Physical exam: Awake alert oriented no acute distress, he has weakness of his right quadriceps and right tibialis which I would rate as 4+ out of 5. Diminished reflexes at the patella and the Achilles bilaterally. He has a large midline incision in his abdomen which is well healed. He has a large posterior lumbar midline incision which is well healed. Imaging review: There is a lumbar MRI and a pelvic MRI with and without contrast done at [place] in May. This shows postsurgical changes at L5-S1. There is also evidence of a T2 hyperintense structure extending from the S1 foramen measured in size according to the radiologist 1.9 cm x 1.9 cm x 2.5 cm. I have a report from the [facility] system done in 2014 showing it was slightly smaller back then. I do not see any other significant degenerative changes in the lumbar spine that would explain radiculopathy. Impression: 58-year-old male who has what sounds like a schwannoma resection about 20 years ago through an anterior and posterior approach who was left with weakness, numbness and some residual pain down the right leg that appears to be getting significantly worse. It is affecting the patient's ability to walk and his ability to get a good night sleep. He has weakness in his leg, in the right quadriceps and tibialis. I am not sure exactly how this fits with the S1 dermatome where the tumor is described. I would like to get the records from Dr. Norman office so I can better understand what the nature of the surgery was and his last follow-up plan on the gentleman. Would also like to get the MRI from [facility] [employer] so we can see the MRI ourselves to see if it is in fact getting bigger or not as described. It was only a few mm smaller about 10 years ago and I am not sure if that amount of growth could explain the recurrence of the pain. Thank you for allowing us to care for your patient. The total time spent with this visit with this patient was 45 minutes reviewing history, physical exam, lumbar and sacral imaging review, and implementation of treatment plan or further diagnostic testing Romero Cotter MD,PhD [facility] Coding Level of Care Code New Pt Level 4 (96773) Diagnoses Schwannoma D36.10
== END 2023-09-18 11:06 | disposition home or self-care (01) ==
PROVIDERS: PCP Family Medicine; Visit Provider Physician Assistant
DX: D36.10 Benign neoplasm of peripheral nerves and autonomic nervous system, unspecified (principal)
CPT/HCPCS: 99204

== ENCOUNTER → 2023-09-18 10:01 | Outpatient (BNVA) | payer OTHER, SELFPAY | PROVIDERS: PCP Family Medicine; Visit Provider Physician Assistant | DX: D36.10 Benign neoplasm of peripheral nerves and autonomic nervous system, unspecified (principal) | CPT/HCPCS: 99202 ==

== ENCOUNTER → 2023-12-30 08:03 | Outpatient (AMB) | payer SELFPAY ==
--- NOTE | 2023-12-30 08:07 | AM.OFFWIN_ITS ---
Intake Vital Signs 12/30/23 08:17 Height 5 ft 8 in Weight 189 lb BMI 28.7 BP 126/78 Blood Pressure Location Rt brachial Position Sitting Respiration 16 Pulse 79 Pulse Source Pulse Oximeter Temp 98.7 F Temp Source Oral Pulse Oximetry (%) 96 Oxygen Delivery Method Room Air Intake Visit Reasons: est/ fever/shakes Intake Note: Fever, shakes, low energy. symptoms for for days Patient Tobacco Use Status: Never used Tobacco Allergies No Known Allergies [No Known Allergies*] Allergy (Verified 12/30/23 08:12) Medication List - Last Reconciled 12/30/23 by Elsa Slater PA-C acetaminophen (Tylenol Extra Strength) 500 mg PO Q6H PRN albuterol sulfate 90 mcg/actuation (Ventolin HFA) 2 puffs inhalation Q4-6H PRN 30 days albuterol sulfate 90 mcg/actuation (ProAir HFA) 2 puffs inhalation Q4-6H PRN 30 days amlodipine 5 mg PO DAILY atorvastatin 40 mg PO DAILY blood pressure test kit-large ([employer] Versa Arm BP Monitor kit) As directed gabapentin 300 mg PO BEDTIME 30 days naproxen 500 mg PO BID PRN 10 days nystatin 1 appl topical BID 30 days HPI est/ fever/shakes HPI Details Patient is a 58-year-old male who presents today with complaints of fever, chills, and body aches. He has been using tylenol and motrin. His fever has gotten as high as 102. He does report sinus congestion, pressure, ear pain, and a dry cough. Reports a mild sore throat but states that he thinks it is from the postnasal drip. He has not been using his rescue inhaler but would like a refill in case he starts developing wheezing.. No n/v/d. No dizziness, vision changes. He is able to eat and drink but does report a slightly diminished appetite. No urinary symptoms. [facility] Medical History (Updated 12/30/23 @ 08:28 by Elsa Slater PA-C) DANICA (obstructive sleep apnea) Loud snoring Somnolence, daytime Retrognathia Enlarged thoracic aorta Hyperlipidemia Bifascicular block Surgical History Hx of colonoscopy Social History Housing: House Patient Tobacco Use Status: Never used Tobacco e-Cigarette/Vaping Use: Never Used Second Hand Smoke Exposure: No service: No Current occupational status: employed Current occupational exposures/hazards: No Cognitive needs: No Hearing needs: No Vision needs: No Physical Exam Vital Signs: Last Vital Signs Temp 98.7 F 12/30/23 08:17 Pulse 79 12/30/23 08:17 Resp 16 12/30/23 08:17 BP 126/78 12/30/23 08:17 Pulse Ox 96 12/30/23 08:17 Oxygen Delivery Method Room Air 12/30/23 08:17 BMI result Body Mass Index 28.7 Const Orientation/consciousness: patient oriented x3 HEENT Other: TMs dome-shaped a small air-fluid levels. Nasal mucosa erythematous. Clear drainage noted. Sinuses mild tenderness over the maxillary sinuses. Ears: hearing grossly normal bilaterally Neck Thyroid: Thyroid normal Lymphatic: no lymphadenopathy noted Resp Auscultation: clear to auscultation bilaterally Cardio Rate: regular rate Rhythm: regular rhythm Heart sounds: S1 normal heart sound present and S2 normal heart sound present GI Inspection: Yes normal to inspection Palpation (GI): Soft to palpation and Other GI palpation findings present (nontender, no cva tenderness) Auscultation: normoactive bowel sounds Rectal Exam - Male: Yes deferred Skin General skin exam: no rashes or lesions noted Neuro General: patient oriented x3, gait normal and no focal motor deficits Assessment & Plan Assessment & Plan (1) Viral URI with cough: Code(s): J06.9 - Acute upper respiratory infection, unspecified Plan: Discussed with patient that this appears to be viral in etiology. I have advised him to rest, hydrate and continue with supportive measures. I have refilled albuterol however no wheezing noted on exam. Able to speak in full sentences without difficulty. Chest x-ray ordered given the cough and fevers. Rapid strep was negative. Flu and COVID testing ordered. We will follow up pending test results. Patient will follow up sooner if anything worsens or changes or symptoms fail to improve over the next few days. Patient understands and agrees with the plan. Orders: Orders SARS-CoV2/FLU/RSV Today R09.89 - Other specified symptoms and signs involving the circulatory and respiratory systems AMB Rapid Strep Screen Today J06.9 - Acute upper respiratory infection, unspecified, Z13.9 - Encounter for screening, unspecified Throat Culture Today B34.9 - Viral infection, unspecified XR chest 2V Today J06.9 - Acute upper respiratory infection, unspecified Medications: New benzonatate 100 mg PO TID 10 days 30 caps 0RF Changed From albuterol sulfate 90 mcg/actuation (ProAir HFA) 2 puffs inhalation Q4-6H 30 days PRN 8.5 grams 0RF shortness of breath or wheezing To albuterol sulfate 90 mcg/actuation 2 puffs inhalation Q4-6H 30 days PRN 8.5 grams 0RF shortness of breath or wheezing Coding Level of Care Code Est Pt Level 4 (10470) Diagnoses Viral URI with cough J06.9
[2023-12-30 08:17] VITALS: BP 126/78; PULSE 79; RESP 16; TEMP 37.1; O2SAT 96; BMI 28.7
--- OUTSIDE RECORDS SUMMARY | 2023-12-30 08:25 | XMS_ITS | Continuity of Care Document ---
Author Organization [facility] Address [address] [place] [address] [address], [address] [place] [address]- Care Team Providers Care Presser Machine Name Role Phone Zuhair Huertas MD Primary Care Physician Encounter [facility] Date(s): 06/09/23 - 07/09/[address], [address] [place] [address]- Attending Physician: Paris Pan Admitting Physician: Admtr ArMerced Referring Physician: Admtr, Ar8 Allergies, Adverse Reactions, Alerts No Known Allergies Immunizations Given and Recorded Vaccine Date Status Refusal Reason pneumococcal 23-valent vaccine 01/18/13 Given Medications omeprazole 20 mg oral enteric coated capsule 1 capsule = 20 mg, By Mouth, Daily, # 14 capsule, 0 Refills, Maintenance, EC Capsule, 1 capsule By Mouth Daily,x14 days Start Date: 01/18/13 Stop Date: 02/01/13 Status: Ordered Patient Care team information Care Team Personnel Name: Zuhair Huertas MD Position: Reference Physician Member Role: PCP Address: Address: [address] [place] [id number]- Name: Deb Hopkins RN Position: S RN Member Role: Primary Care Nurse Care Team Related Persons Name: NEREYDA TINEO Address: home [address] [place] [address] Name: DONNA OBRIEN Address: home [address] [place] [address]
--- OUTSIDE RECORDS SUMMARY | 2023-12-30 08:25 | XMS_ITS | Continuity of Care Document ---
Author Organization [facility] Address [address] [place] [id number]- Care Team Providers Care Survival Equipment Repairer Name Role Phone Po Kerwin BARRIOS Primary Care Physician [phone] Encounter [facility] Date(s): 10/09/21 - 10/10/[address] [address]- Encounter Diagnosis Headache(Final) - 10/10/21 Neck pain(Final) - 10/10/21 Discharge Disposition: A-D/C Home Attending Physician: Jose M Kuhn DO Admitting Physician: Jose M Kuhn DO Referring Physician: Not on Staff, Referring MD Allergies, Adverse Reactions, Alerts No Known Allergies Immunizations Given and Recorded Vaccine Date Status Refusal Reason pneumococcal 23-valent vaccine 01/18/13 Given Medications Acetaminophen Tablet 975 mg, Tablet, By Mouth, Once, STAT, 10/10/21 2:33:00 EDT, Stop date 10/10/21 2:33:00 EDT Start Date: 10/10/21 Stop Date: 10/10/21 Status: Completed omeprazole 20 mg oral enteric coated capsule 1 capsule = 20 mg, By Mouth, Daily, # 14 capsule, 0 Refills, Maintenance, EC Capsule, 1 capsule By Mouth Daily,x14 days Start Date: 01/18/13 Stop Date: 02/01/13 Status: Ordered Results Orders for Microbiology Reports Name Date CSF Culture w/ Gram Smear 10/10/21 Microbiology Reports TEST:Spinal Fluid Culture STATUS:Unauthenticated BODY SITE: SOURCE:CEREBR COLLECTED DATE/TIME:10/10/21 6:25 AM Spinal Fluid Culture SPECIMEN DESCRIPTION : CEREBROSPINAL FLUID SPECIAL REQUESTS : NONE GRAM STAIN : NO CELLS OR ORGANISMS SEEN REPORT STATUS : PRELIMINARY REPORT Vital Signs Most recent to oldest [Reference Range]: 1 2 3 Height 175.3 cm (10/10/21 8:29 AM) 175.3 cm (10/09/21 8:34 PM) 175.3 cm (10/09/21 7:59 PM) Weight 83.91 kg (10/09/21 8:34 PM) 83.91 kg (10/09/21 7:59 PM) Oxygen Saturation [94-100 %] 100 % (10/10/21 9:37 AM) 98 % (10/10/21 8:29 AM) 100 % (10/10/21 4:45 AM) Pulse Rate [55-90 bpm] 59 bpm (10/10/21 9:37 AM) 77 bpm (10/10/21 8:29 AM) 55 bpm (10/10/21 4:45 AM) Body Mass Index [18.5-24.99] 27.31 *H* (10/09/21 7:59 PM) Blood Pressure [90-138/55-84 mm Hg] 126/85mm Hg (10/10/21 8:29 AM) 157/101mm Hg *H* (10/10/21 4:45 AM) Systolic Blood Pressure [90-138 mm Hg] 142 mm Hg *H* (10/10/21 9:37 AM) Diastolic Blood Pressure [55-84 mm Hg] 59 mm Hg (10/10/21 9:37 AM) Respiratory Rate [16-30 br/min] 16 br/min (10/10/21 9:37 AM) 21 br/min (10/10/21 8:29 AM) 19 br/min (10/10/21 3:55 AM) Temperature [96.8-100.4 DegF] 97.7 DegF (10/10/21 9:37 AM) 98.3 DegF (10/10/21 8:29 AM) 97.5 DegF (10/10/21 1:49 AM) Mode of Delivery (Oxygen) Room air (10/10/21 9:37 AM) Room air (10/10/21 8:29 AM) Room air (10/10/21 4:45 AM) Blood pressure sites Arm, right (10/10/21 8:29 AM) Arm, right (10/10/21 1:53 AM) Arm, right (10/10/21 1:49 AM) Temperature Route Oral (6/2/22 9:37 AM) Oral (10/10/21 8:29 AM) Oral (10/10/21 1:49 AM)
--- OUTSIDE RECORDS SUMMARY | 2023-12-30 08:25 | XMS_ITS | Continuity of Care Document ---
Author Organization [facility] ter Address [address] [place] [address]- Care Team Providers Care Traffic Recorder Name Role Phone Mer BARRIOS, Josh Alejandro Primary Care Physician Encounter [facility] Date(s): 10/25/22 - 10/25/[address] [address]- Discharge Disposition: A-D/C Home Attending Physician: Bert West MD Admitting Physician: Bert West MD Referring Physician: Not on Staff, Referring MD [...] 01/18/13 Stop Date: 02/01/13 Status: Ordered Results Radiology Reports * Exam Date Time Procedure Performing Provider Status 10/25/22 6:10 PM Wrist Comp Min 3 Views Left Melara , He ather; Auth (Verified) Notes: (Wrist Comp Min 3 Views Left) Reason For Exam: with Pain;Trauma RESULT: Wrist Comp Min 3 Views Left Wrist Comp Min 3 Views Left Hx of Present Illness: Patient s p fall 3 days ago and reports continued L wrist pain and tenderness; Reason: Trauma; with Pain; Clinical Question(s): Fracture; Special Instructions: This is a protocol film and radiologist should call any findings to the Charge Nurse COMPARISON: None. FINDINGS: No fracture or dislocation. No arthritic change. Normal carpal configuration. Intact radial and ulnar styloid processes. Normal soft tissues. IMPRESSION: Normal. No acute fracture. WSN: [id number] Ordering Physician: Jono Segura Dictated By: Trice Reeves MD Dictated Date/Time: 10/25/22 6:21 pm Reviewed By: Trice Reeves MD Signed By: Trice Reeves MD Signed Date/Time: 10/25/22 6:21 pm Transcribed By: MARK Transcribed Date/Time: 10/25/22 6:20 pm Vital Signs Most recent to oldest [Reference Range]: 1 2 3 Height 173 cm (10/25/22 8:05 PM) 173 cm (10/25/22 5:55 PM) 173 cm (10/25/22 4:46 PM) Weight 82 kg (10/25/22 8:05 PM) 82 kg (10/25/22 5:55 PM) 82 kg (10/25/22 4:46 PM) Oxygen Saturation [94-100 %] 99 % (10/25/22 4:46 PM) 100 % (10/25/22 4:11 PM) Pulse Rate [55-90 bpm] 66 bpm (10/25/22 4:46 PM) 87 bpm (10/25/22 4:11 PM) Body Mass Index [18.5-24.99 kg/m2] 27.4 kg/m2 *H* (10/25/22 4:46 PM) Blood Pressure [90-138/55-84 mm Hg] 155/100mm Hg *H* (10/25/22 4:46 PM) Respiratory Rate [16-30 br/min] 18 br/min (10/25/22 4:46 PM) Temperature [96.8-100.4 DegF] 97.7 DegF (10/25/22 4:46 PM) Mode of Delivery (Oxygen) Room air (10/25/22 4:46 PM) Room air (10/25/22 4:11 PM) Blood pressure sites Arm, left (10/25/22 4:46 PM) Temperature Route Oral (10/25/22 4:46 PM) Dry Weight 82 kg (10/25/22 8:05 PM) 82 kg (10/25/22 5:55 PM) 82 kg (10/25/22 4:46 PM) Note * Eladia BARRIOS, Bev Madison: PERFORM, SIGN, VERIFY Event Display: Patient Education Handout Authored Date: [id number] Patient Care team information Care Team Personnel Name: Josh Del Angel MD Position: [facility] Outreach Member Role: PCP Address: Address: [address] [place] [address]- [place] Name: Deb Hopkins RN Position: [facility] RN Member Role: Primary Care Nurse Name: Bert West MD Position: [facility] ED Medicine MD Member Role: Admitting Physician Address: Address: [address] [place] [address]- Name: Asya Pedraza RN Position: [facility] ED RN W/OE and Tasks Member Role: Patient Care Provider Name: Андрей Peterson Position: [facility] ED TA [facility] Member Role: [place] Attendant Name: Bev Montilla MD Position: [facility] ED Medicine MD Member Role: ED Attending Physician Address: Address: [address] [place] [address]- Care Team Related Persons Name: NEREYDA TINEO Address: home [address] [place] [address] Name: DONNA OBRIEN Address: home [address] [place] [address]
--- OUTSIDE RECORDS SUMMARY | 2023-12-30 08:25 | XMS_ITS | Continuity of Care Document ---
Author Organization [facility] [address], [address] [place] [address]- Care Team Providers Care Legal Records Clerk Name Role Phone Zuhair Huertas MD Primary Care Physician Encounter [facility] Date(s): 05/28/23 - 07/09/[address], [address] [place], [place] [address] Attending Physician: Harmeet Garcia MD Referring Physician: Josh Del Angel MD Allergies, Adverse Reactions, Alerts No Known [...] Reference Physician Member Role: PCP Address: Address: [address] [place] [address]- Name: Deb Hopkins RN Position: S RN Member Role: Primary Care Nurse Care Team Related Persons Name: NEREYDA TINEO Address: home [address] [place] [address] Name: DONNA OBRIEN Address: home [address] [place] [address]
--- OUTSIDE RECORDS SUMMARY | 2023-12-30 08:25 | XMS_ITS | Continuity of Care Document ---
Author Organization [facility] Address [address] [facility], [address] [place] [address]- Care Team Providers Care Family Resource Coordinator Name Role Phone Aleksandar BARRIOS, Zuhair Primary Care Physician Encounter 09/19/21 - 09/26/21 [facility] [address], [address] [place] [address]- Attending Physician: Mingo Noel MD Admitting Physician: Mingo Noel MD Referring Physician: Mingo Noel MD Allergies, Adverse Reactions, Alerts No Known [...]
--- OUTSIDE RECORDS SUMMARY | 2023-12-30 08:25 | XMS_ITS | Continuity of Care Document ---
Author Organization [facility] Address [address] [facility], [address] [place] [address]- Care Team Providers Care Ophthalmologist Retina Specialist Name Role Phone Aleksandar BARRIOS, Zuhair Primary Care Physician [phone] Encounter 08/01/21 - 09/15/21 [facility] [address], [address] [place] [address]- Attending Physician: Mingo Noel MD Admitting Physician: [...]
--- OUTSIDE RECORDS SUMMARY | 2023-12-30 08:25 | XMS_ITS | Continuity of Care Document ---
Author Organization [facility] ter Address [address] [place] [address]- Care Team Providers Care Pumper Hand Name Role Phone Zuhair Huertas MD Primary Care Physician Encounter [facility] Date(s): 06/10/19 - 06/10/[address] [address]- [facility] Attending Physician: Zuhair Huertas MD Allergies, Adverse Reactions, Alerts Substance Reaction Severity Status NKA Active Immunizations Given and Recorded Vaccine Date Status Refusal Reason pneumococcal 23-valent vaccine 01/18/13 Given Medications omeprazole 20 mg oral enteric coated capsule 1 capsule = 20 mg, By Mouth, Daily, # 14 capsule, 0 Refills, Maintenance, EC Capsule, 1 capsule By Mouth Daily,x14 days Start Date: 01/18/13 Stop Date: 02/01/13 Status: Ordered
--- OUTSIDE RECORDS SUMMARY | 2023-12-30 08:25 | XMS_ITS | Continuity of Care Document ---
Author Organization [facility] Address [address] [place] [address] [address], [address] [place] [address]- Care Team Providers Care Club Licensee Name Role Phone Zuhair Huertas MD Primary Care Physician [phone] Encounter [facility] Date(s): 05/28/23 - 06/27/[address], [address] [place] [address]- Allergies, Adverse Reactions, Alerts No Known Allergies [...] Reference Physician Member Role: PCP Address: Address: [address] [place] [address]- Name: Deb Hopkins RN Position: S RN Member Role: Primary Care Nurse Care Team Related Persons Name: NEREYDA TINEO Address: home [address] [place] [address] Name: DONNA OBRIEN Address: [address] [place] [address]
== END ==
PROVIDERS: PCP Family Medicine; Visit Provider Physician Assistant
DX: Z13.9 Encounter for screening, unspecified (principal); J06.9 Acute upper respiratory infection, unspecified
CPT/HCPCS: 87880; 99214

== ENCOUNTER 2023-12-30 08:32 | Outpatient (REF) | payer OTHER, SELFPAY ==
[2023-12-30 10:39] LABS: Influenza A PCR NEGATIVE (Negative); Influenza B PCR NEGATIVE (Negative); Resp Syncy Virus RNA Qual PCR NEGATIVE (Negative); SARS COV2 PCR INHOUSE NEGATIVE (Negative)
== END 2023-12-30 08:33 | disposition home or self-care (01) ==
LOC: HO.LAB 08:32
PROVIDERS: Visit Provider Physician Assistant
DX: R09.89 Other specified symptoms and signs involving the circulatory and respiratory systems (principal)
CPT/HCPCS: 0241U; 87070

== ENCOUNTER → 2024-07-20 14:07 | Outpatient (BNVA) | payer OTHER, SELFPAY | PROVIDERS: PCP Family Medicine; Visit Provider Family Medicine | DX: M54.18 Radiculopathy, sacral and sacrococcygeal region (principal) | CPT/HCPCS: 99212 ==

== ENCOUNTER 2024-07-28 09:22 | Outpatient (REF) | payer OTHER, SELFPAY ==
--- NOTE | ~2024-07-28 | MR_ITS ---
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 TECHNIQUE: Axial and coronal T1, sagittal T2, axial fat-suppressed T2, and coronal oblique STIR images of the pelvis were obtained. Subsequently, axial fat-suppressed T1-weighted images were obtained before and after the intravenous administration of 8.5 mm Gadavist. COMPARISON: Comparison is made with the prior examination dated 05/25/2023. FINDINGS: Again seen is a 2.3 x 1.9 x 2.1 cm T2 hyperintense, centrally enhancing mass in the right hemipelvis which appears to be right arising from the 1st sacral nerve root. This likely represents a schwannoma. The mass is similar in size to the prior study. No additional lesion is identified. Bone marrow signal intensity is normal. The hip joints are maintained. There is no hip joint effusion. The sacroiliac joints are maintained. There is no ascites or pelvic lymphadenopathy. The urinary bladder is unremarkable. There is diverticulosis of the sigmoid colon, without evidence of diverticulitis. MR/MR pelvis wo/w con IMPRESSION: Stable 2.3 x 1.9 x 2.1 cm probable schwannoma arising from the right S1 nerve root. Electronically signed by: Bert Whipple MD 07/28/2024 12:11 PM EDT
--- OUTSIDE RECORDS SUMMARY | 2024-07-28 10:09 | XMS_ITS | Clinical Summary ---
Author Organization [employer] [facility] Address [address] [place] [address] Care Team Providers Care Boat Fueler Name Role Phone Chirag Baker MD Primary Care Provider [phone] Allergies No known active allergies Medications Medication Sig Dispensed Refills Start Date End Date Status traMADol (ULTRAM) 50 MG tabletIndications:Ner ve sheath tumor Take 50 mg by mouth every 6 (six) hours as needed for pain. 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 Social History Tobacco Use Types Packs/Day Years Used Date Smoking Tobacco: Never Smokeless Tobacco: Never Sex and Gender Information Value Date Recorded Sex Assigned at Not on file Gender Identity Not on file Sexual Orientation Not on file Last Filed Vital Signs Vital Sign Reading Time Taken Comments Blood Pressure 122/88 09/17/2017 2:09 PM EDT Pulse - - Temperature - - Respiratory Rate - - Oxygen Saturation - - Inhaled Oxygen Concentration - - Weight 85.3 kg (188 lb) 09/17/2017 2:09 PM EDT Height 175.3 cm (5' 9 ) 01/30/2017 12:17 PM EDT Body Mass Index 27.76 01/30/2017 12:17 PM EDT Plan of Treatment Health Maintenance Due Date Last Done Comments Hepatitis B Vaccines (1 of 3 - 3-dose series) 1966 Hepatitis C Screening 1966 COVID-19 Vaccine (#1) 1966 Depression Screening 1978 Preventative Health Evaluation 1984 DTap / Tdap / Td (1 - Tdap) 1985 Colon Cancer Screening (Colonoscopy) 2011 Shingrix-Zoster Vaccine (1 of 2) 2016 Influenza Vaccine (#1) 2024 Pneumococcal Vaccine Aged Out No long er eligible based on patient's age to complete this topic RSV Ped < 20 months Aged Out No longe r eligible based on patient's age to complete this topic Care Teams Boat Fueler Relationship Specialty Start Date End Date Chirag Baker MD [address] [place] [address] [place] [phone] PCP - General Internal Medicine 01/22/17
[2024-07-28] MEDS: gadobutroL 10 ML VIAL IVPUSH (10:43)
== END 2024-07-28 09:23 | disposition home or self-care (01) ==
LOC: HO.MRI 09:22
PROVIDERS: PCP Family Medicine; Visit Provider Family Medicine
DX: D49.7 Neoplasm of unspecified behavior of endocrine glands and other parts of nervous system (principal); R29.898 Other symptoms and signs involving the musculoskeletal system; M54.18 Radiculopathy, sacral and sacrococcygeal region; M54.9 Dorsalgia, unspecified
CPT/HCPCS: 72197; A9585

== ENCOUNTER → 2024-07-28 09:32 | Outpatient (BNV) | payer OTHER, SELFPAY | PROVIDERS: PCP Family Medicine; Visit Provider Radiology Diagnostic Radiology | DX: M54.18 Radiculopathy, sacral and sacrococcygeal region (principal) | CPT/HCPCS: 72197 ==

== ENCOUNTER 2024-08-31 14:47 | Outpatient (AMB) | payer OTHER, SELFPAY ==
--- NOTE | 2024-08-31 14:52 | A.OFFVIS_ITS ---
Vital Signs 08/31/24 14:55 Height 5 ft 8 in Weight 216 lb 0.848 oz BMI 32.8 BP 120/80 Blood Pressure Location Lt brachial Position Sitting Pulse 80 Pulse Source Monitor Intake Visit Reasons: overdue follow-up Litigation Legal Secretary Required: No Accompanied by: Self / Same As Patient Allergies No Known Allergies [No Known Allergies*] Allergy (Verified 07/20/24 14:13) Medication List - Last Reconciled 08/31/24 by Ace Redman NP amlodipine 5 mg PO DAILY atorvastatin 40 mg PO DAILY blood pressure test kit-large ([employer] Versa Arm BP Monitor kit) As directed metoprolol succinate ER 25 mg PO DAILY 90 days nystatin 1 appl topical BID 30 days HPI Comments Details: This is a 59-year-old male patient presenting for an overdue follow-up visit. Patient with medical history for hypertension, hyperlipidemia, enlarged thoracic aorta, and bifascicular block. He has previously seen in the office for elevated blood pressures at which time he was started on amlodipine and metoprolol. Today, the patient reports feeling well overall and denies any cardiac symptoms including exertional chest pain, shortness of breath, palpitations, dizziness, orthopnea, PND, lower leg edema, presyncope, or syncope. Patient reports full compliance with his prescribed medications. [facility] Medical History DANICA (obstructive sleep apnea) Loud snoring Somnolence, daytime Retrognathia Enlarged thoracic aorta Hyperlipidemia Bifascicular block Surgical History Hx of colonoscopy Social History Housing: House Patient Tobacco Use Status: Never used Tobacco e-Cigarette/Vaping Use: Never Used Second Hand Smoke Exposure: No service: No Current occupational status: employed Current occupational exposures/hazards: No Cognitive needs: No Hearing needs: No Vision needs: No Review of Systems Const Denies chills, Denies fatigue, Denies fever(s), Denies frequent falls, Denies weakness, Denies weight gain and Denies weight loss ENT Denies dizziness Card Denies chest pain, Denies leg edema, Denies lightheadedness, Denies palpitations, Denies dyspnea and Denies dyspnea on exertion Resp Denies cough, Denies dyspnea and Denies dyspnea on exertion GI Denies hematochezia Musc Denies abnormal gait, Denies muscle weakness, Denies numbness, Denies radiating pain into limb and Denies tingling Neuro Denies abnormal gait, Denies dizziness, Denies frequent falls, Denies numbness, Denies tingling and Denies weakness Endo Denies fatigue and Denies palpitations Physical Exam Vital Signs: Last Vital Signs Pulse 80 08/31/24 14:55 BP 120/80 08/31/24 14:55 BMI result Body Mass Index 32.8 Office Procedures EKG Details: EKG today showed normal sinus rhythm, rate 80 beats per minute, right bundle branch block, left anterior fascicular block, [place], [place]. [id number], Complete Assessment & Plan Assessment & Plan (1) Enlarged thoracic aorta: Code(s): I77.89 - Other specified disorders of arteries and arterioles Category: Medical Plan: 09/19/2021-coronary calcium score showed a calcium score of 0 however showed an enlargement of ascending aorta at 4.5 cm. 08/07/2022-echo study showed low- normal EF at 52%. Previously a chest aorta CTA was recommended to further assess this but it was never completed. We will make another attempt to get this done and the patient understands the importance of these imaging. We discussed in detail the potential need for intervention in case of aorta continuing to enlarge particularly if approaching 5 cm. Symptoms associated with such enlargement was reviewed comprehensively. In the meantime emphasized aggressive management of vascular risk factors. (2) Bifascicular block: Code(s): I45.2 - Bifascicular block Category: Medical Plan: EKG unchanged. Clinically stable. No interventions indicated at this time. (3) Hypertension: Code(s): I10 - Essential (primary) hypertension Category: Medical Plan: Blood pressure today is well-controlled. Advised patient to monitor blood pressures at home and keep a log of it. Ideally, blood pressure goal less than 130/80. (4) Hyperlipidemia: Code(s): E78.5 - Hyperlipidemia, unspecified Category: Medical Plan: Last LDL in 2022 at 90, not within goal. Continue statin therapy. We will repeat lipid panel with an LDL goal less than 70. Advised heart healthy diet, regular exercise, low-salt diet, med compliance, and aggressive management of vascular risk factors. We will follow up with the patient in 3 months' time. In the interim, patient will call us with any concerns or change in symptoms. This note was generated using voice recognition software. While every effort has been made to ensure accuracy and proper credit risk manager, there may be occasional errors that could affect the content or meaning of the described symptoms. Orders: Orders CT angio chest aorta Today I77.89 - Other specified disorders of arteries and arterioles Basic Metabolic Panel Today I77.89 - Other specified disorders of arteries and arterioles Lipid Panel Today E78.5 - Hyperlipidemia, unspecified AMB EKG-In Office Today I45.2 - Bifascicular block Coding Level of Care Code Est Pt Level 4 (19128) Complex EM visit Add On G2211 Diagnoses Enlarged thoracic aorta I77.89 Bifascicular block I45.2 Hypertension I10 Hyperlipidemia E78.5 CPT Codes EKG - CPT: 00298-[id number], Complete ([id number]) Time Spent (min) 32 Comment Time spent in reviewing the chart, test results, assessment, counseling and documentation.
[2024-08-31 14:55] VITALS: BP 120/80; PULSE 80; BMI 32.8
--- OUTSIDE RECORDS SUMMARY | 2024-08-31 17:37 | XMS_ITS | Clinical Summary ---
Author Organization [employer] [facility] Address [address] [place] [address] Care Team Providers Care Mason Liner Name Role Phone Chirag Baker MD Primary Care Provider [phone] Allergies No known active allergies Medications Medication [...] age to complete this topic Care Teams Mason Liner Relationship Specialty Start Date End Date Chirag Baker MD [address] [place] [address] [place] [phone] PCP - General Internal Medicine 01/22/17
== END 2024-08-31 15:36 | disposition home or self-care (01) ==
LOC: HO.HCS 14:48
PROVIDERS: PCP Family Medicine
DX: I77.89 Other specified disorders of arteries and arterioles (principal); I45.2 Bifascicular block; I10 Essential (primary) hypertension; E78.5 Hyperlipidemia, unspecified
CPT/HCPCS: 93010; 99214; G2211

== ENCOUNTER → 2024-08-31 14:47 | Outpatient (BNVA) | payer OTHER, SELFPAY | PROVIDERS: PCP Family Medicine | DX: I77.89 Other specified disorders of arteries and arterioles (principal); I45.2 Bifascicular block; I10 Essential (primary) hypertension; E78.5 Hyperlipidemia, unspecified | CPT/HCPCS: 93005; 99212 ==

== ENCOUNTER 2024-09-09 09:02 | Outpatient (AMB) | payer OTHER, SELFPAY ==
--- NOTE | 2024-09-09 09:11 | MHC.OFFWIV ---
Intake Vital Signs 09/09/24 09:15 Height 5 ft 8 in Weight 194 lb BMI 29.5 BP 118/68 Blood Pressure Location Lt brachial Position Sitting Respiration 12 Pulse 72 Pulse Source Pulse Oximeter Temp 97.4 F Temp Source Oral Pulse Oximetry (%) 96 Oxygen Delivery Method Room Air Intake Visit Reasons: Left side is itchy / rash Intake Note: Patient c/o lump on left side on back painful x 2 days Patient Tobacco Use Status: Never used Tobacco Mailing Section Clerk Required: No Allergies No Known Allergies [No Known Allergies*] Allergy (Verified 09/09/24 09:21) Medication List - Last Reconciled 09/09/24 by Abigail Aguiar, STONE PLANER- amlodipine 5 mg PO DAILY atorvastatin 40 mg PO DAILY blood pressure test kit-large ([employer] Versa Arm BP Monitor kit) As directed metoprolol succinate ER 25 mg PO DAILY 90 days nystatin 1 appl topical BID 30 days Do you need a note to return to daycare/school/sports/work: No HPI HPI Comments History of Present Illness Details History of Present Illness - The patient is a 59-year-old male presenting with a painful lump on the left side of his back. - The issue began 2 days ago and is markedly painful to the touch, impacting the patient's sleep. - No trauma or insect bite was reported as an inciting cause. unsure of last TDap - The patient also has a schwannoma and underwent a previous MRI, with plans for further evaluation in [place]. Needs updated MRI to be done before the visit in [place]. [facility] Neuro note 09/2023 reviewed. - HTN - well controlled on current meds C/o allergy sx runny nose itchy eyes, would like RX for allergy medication. Physical Exam General: Well developed, well nourished, in no acute distress. Appears stated age. Head: Normocephalic, atraumatic. L chest wall abcess, successfully drainage of brown, white foul smelling drainage during the visit, pt tolerated well, symptomatic relief. Pt tolerated well. Discussion Notes I discussed with the patient that the lump on the back was indeed an abscess, which required drainage and will be treated with a course of antibiotics, specifically cephalexin. I explained the possible risks of an untreated abscess, such as further infection and the importance of completing the antibiotic course. The patient was also reminded about the follow-up regarding his schwannoma and was advised to contact his spine specialists for additional MRI referrals. Tdap admin today. We discussed travel health recommendations and I advised him to refer to a travel clinic for any necessary prophylactic medications or vaccinations. Consent was obtained for treatment today, including the antibiotic prescribed. Assessment and Plan 1. Abscess on left side of trunk I drained the abscess that was causing the patient significant discomfort. Cephalexin was prescribed post-procedure to address the associated infection and prevent recurrence. Tdap admin. Bacitracin and DCD applied to the area at the time of visit. 2. Essential Hypertension The management of essential hypertension is ongoing, following previously established protocols, though it was not a primary focus of this visit. 3. Schwannoma The patient's schwannoma is under active evaluation. I recommended continuing the neurological follow-up in [place], and suggested coordinating with his specialists for any additional MRI requirements. 4. Allergies - levocetrizine sent 5. Travel fu with travel clinic Consent Patient was informed and verbally consented to the use of an ambient scribe for clinic note documentation during this visit. [facility] Medical History DANICA (obstructive sleep apnea) Loud snoring Somnolence, daytime Retrognathia Enlarged thoracic aorta Hyperlipidemia Bifascicular block Surgical History Hx of colonoscopy Social History Housing: House Patient Tobacco Use Status: Never used Tobacco e-Cigarette/Vaping Use: Never Used Second Hand Smoke Exposure: No service: No Current occupational status: employed Current occupational exposures/hazards: No Cognitive needs: No Hearing needs: No Vision needs: No Physical Exam Vital Signs: Last Vital Signs Temp 97.4 F 09/09/24 09:15 Pulse 72 09/09/24 09:15 Resp 12 09/09/24 09:15 BP 118/68 09/09/24 09:15 Pulse Ox 96 09/09/24 09:15 Oxygen Delivery Method Room Air 09/09/24 09:15 BMI result Body Mass Index 29.5 Immunizations Boostrix Tdap 2.5 Lf unit-8 mcg-5 Lf/0.5 mL intramuscular syringe Performing Provider: MOR Hameed- Performing Location: [facility] Family Medicine Administered by: Socorro Tidwell CMA on 09/09/24 09:49 Dose Route Admin Location Dispensed Lot Number Expiration Date [facility] Channel Man 0.5 mL IM Left Deltoid 0.5 mL [id number] 05/20/26 [id number] [employer] VIS Given Date VIS Provided VIS Publication Date 09/09/24 Single Vaccine 20 Eligibility Eligibility Date Funding Source Not [facility] Eligible 09/09/24 Private Assessment & Plan Assessment & Plan (1) Skin abscess: Code(s): L02.91 - Cutaneous abscess, unspecified Qualifiers: Site of cutaneous abscess: trunk Site of cutaneous abscess of trunk: unspecified site Qualified Code(s): L02.219 - Cutaneous abscess of trunk, unspecified (2) Need for Tdap vaccination: Code(s): Z23 - Encounter for immunization (3) Hypertension: Code(s): I10 - Essential (primary) hypertension Qualifiers: Hypertension type: primary hypertension Qualified Code(s): I10 - Essential (primary) hypertension (4) Environmental allergies: Code(s): Z91.09 - Other allergy status, other than to drugs and biological substances (5) Schwannoma: Code(s): D36.10 - Benign neoplasm of peripheral nerves and autonomic nervous system, unspecified Plan . Orders: Orders TDaP Immunization Today Z23 - Encounter for immunization Medications: New cephalexin 500 mg PO Q12H 14 caps 0RF 7 days levocetirizine 5 mg PO DAILY 90 tabs 0RF Patient Instructions: Patient Instructions - Take the prescribed antibiotic, cephalexin, twice a day for 7 days. - Wash the abscess site daily with soap and water, and cover it with a clean bandage for 2-3 days. - Monitor the site for signs of increased infection and contact the office if swelling, redness, or fever develops. - Consult with the travel clinic for international health recommendations. - Take levocetrizine 5mg daily as needed for allergy symptoms. - Contact spine specialists @ [facility], for further guidance on the schwannoma and necessary MRI. Coding Level of Care Code Est Pt Level 4 (65678) Diagnoses Cutaneous abscess of trunk, unspecified site of trunk L02.219 Site of cutaneous abscess: trunk Site of cutaneous abscess of trunk: unspecified site Need for Tdap vaccination Z23 Primary hypertension I10 Hypertension type: primary hypertension Environmental allergies Z91.09 Schwannoma D36.10
[2024-09-09 09:15] VITALS: BP 118/68; PULSE 72; RESP 12; TEMP 36.3; O2SAT 96; BMI 29.5
--- OUTSIDE RECORDS SUMMARY | 2024-09-09 09:30 | XMS_ITS | Clinical Summary ---
Author Organization [facility] Address [address] [place] [address] Care Team Providers Care Plant Maintenance Supervisor Name Role Phone Chirag Baker MD Primary Care Provider [phone] Allergies No known active allergies Medications Medication [...] age to complete this topic Care Teams Plant Maintenance Supervisor Relationship Specialty Start Date End Date Chirag Baker MD [address] [place] [address] [place] [phone] PCP - General Internal Medicine 01/22/17
== END 2024-09-10 17:29 | disposition home or self-care (01) ==
PROVIDERS: PCP Family Medicine; Visit Provider Nurse Practitioner Family
DX: L02.219 Cutaneous abscess of trunk, unspecified (principal); Z23 Encounter for immunization; I10 Essential (primary) hypertension; Z91.09 Other allergy status, other than to drugs and biological substances; D36.10 Benign neoplasm of peripheral nerves and autonomic nervous system, unspecified

== ENCOUNTER → 2024-09-09 09:02 | Outpatient (BNVA) | payer OTHER, SELFPAY | PROVIDERS: PCP Family Medicine | DX: Z23 Encounter for immunization (principal); L02.219 Cutaneous abscess of trunk, unspecified; I10 Essential (primary) hypertension; D36.10 Benign neoplasm of peripheral nerves and autonomic nervous system, unspecified; Z91.09 Other allergy status, other than to drugs and biological substances | CPT/HCPCS: 90471; 90715; 99212 ==

== ENCOUNTER 2024-11-08 08:25 | Outpatient (REF) | payer OTHER, SELFPAY ==
--- NOTE | ~2024-11-08 | CT_ITS ---
EXAMINATION: CT ANGIOGRAM CHEST CLINICAL INFORMATION: Disorders of arteries and arterioles COMPARISON: December 18, 2022. TECHNIQUE: Multiple axial images were obtained through the chest after the administration of 70 mL of Omnipaque 350 intravenous contrast. Extensive vascular post-processing including two-dimensional and three-dimensional reformatted images were created and reviewed on an independent workstation. This CT examination was performed using dose optimization techniques as appropriate, variously including the following: *Automated exposure control *Adjustment of mA and/or kV according to patient size (this includes techniques or standardized protocols for targeted exams where dose is matched to indication/reason for exam; i.e. extremities or head) *Use of iterative reconstruction technique DLP: 161 mGy centimeter. FINDINGS: Ascending thoracic aorta diameter: 4.7 cm. No intimal flap. No IV contrast extravasation. Thoracic aortic arch diameter: 2.7 cm. No intimal flap. No IV contrast extravasation. Descending thoracic aorta diameter: 2.3 cm. No intimal flap. No IV contrast extravasation. Small calcified plaques thoracic aortic arch and descending thoracic aorta. No hemomediastinum. No pneumomediastinum. No hemopericardium. No pericardial effusion. Heart is not enlarged. No lymphadenopathy, mediastinum or perihilar. Nonspecific pulmonary patchy groundglass. No pneumothorax. No pleural effusion. No hemothorax. No bronchiectasis. No honeycombing. Respiratory airways. No gross pulmonary nodules. Inadequate evaluation of the osseous structures. Multilevel spondylosis. No gross acute rib fractures.. CT/CT angio chest aorta IMPRESSION: 4.7 cm aneurysm, ascending thoracic aorta. Slightly larger since prior exam. Fleischner guidelines were followed. Electronically signed by: Lucas Canseco MD 11/08/2024 10:45 AM EDT
--- OUTSIDE RECORDS SUMMARY | 2024-11-08 08:29 | XMS_ITS | Clinical Summary ---
Author Organization [facility] Address [address] [place] [address] Care Team Providers Care Mental Telepathist Name Role Phone Chirag Baker MD Primary Care Provider [phone] Allergies No known active allergies Medications Medication [...] Vaccine (1 of 2) 2016 Influenza Vaccine (Season Ended) 2025 Pneumococcal Vaccine Aged Out No long er eligible based on patient's age to complete this topic RSV Ped < 20 months Aged Out No longe r eligible based on patient's age to complete this topic Care Teams Mental Telepathist Relationship Specialty Start Date End Date Chirag Baker MD [address] [place] [address] [place] [phone] PCP - General Internal Medicine 01/22/17
--- OUTSIDE RECORDS SUMMARY | 2024-11-08 08:29 | XMS_ITS | Patient Health Record ---
Author Organization [facility] Address [address] [place] [address] Care Team Providers Care Warp Hand Name Role Phone Samuel BARRIOS, Chirag Primary Care Provider Unavail able Álvaro Bolanos Jr Unavailable [phone] Reason For Referral No Information Social History Tobacco Use: Social History Observation Description Date Details (start date - stop date) Never Smoker NA - NA Tobacco Use/Smoking Question Answer Notes Patient is a nonsmoker Alcohol Screen Question Answer Notes Did you have a drink containing alcohol in the p ast year? No Points 0 Interpretation Negative Problems Problem Type SNOMED Code ICD Code Onset Dates Problem Status W/U Status Risk Notes Problem Unspecified constipation (564.00) Active confirmed Problem Hemorrhage of rectum and anus (624136889) Hemorrhage of rectum and anus (569.3) Active confirmed Plan Of Treatment No Information Insurance Providers Payer Name Payer Address Payer Phone Subscriber Number Group Number Insured Name Patient Relationship to Insured Coverage Start Date Coverage End Date MEDICAID OF [facility] [address] [place] [phone] [id number] Henrry Avendano Self - patient is the insured Medical (General) History Medical History History ICD Code he denies other medical problems. Surgical History Surgery Date(Month/Year) back surgery for spinal tumor.
[2024-11-08 09:40] LABS: Anion Gap 14 (12-20); Blood Urea Nitrogen 9 mg/dL (9-16); Calcium 9.0 mg/dL (8.4-10.2); Carbon Dioxide 27 mmol/L (22-29); Chloride 102 mmol/L (96-108); Cholesterol 155 mg/dL (<200); Estimated Glomerular Filt Rate > 60; HDL Cholesterol 32 mg/dL (>40); Potassium 4.0 mmol/L (3.3-5.1); Sodium 139 mmol/L (135-145); Triglycerides 229 mg/dL (<150)
[2024-11-08] MEDS: iohexoL 350 MG/ML 100 ML INFUS..BTL 70 ML IV (10:28)
== END 2024-11-08 08:26 | disposition home or self-care (01) ==
LOC: HO.CT 08:25
PROVIDERS: PCP Family Medicine
DX: I77.89 Other specified disorders of arteries and arterioles (principal); E78.5 Hyperlipidemia, unspecified
CPT/HCPCS: 36415; 71275; 80048; 80061; Q9967

== ENCOUNTER → 2024-11-08 08:41 | Outpatient (BNV) | payer OTHER, SELFPAY | PROVIDERS: PCP Family Medicine; Visit Provider Radiology Diagnostic Radiology | DX: I71.21 Aneurysm of the ascending aorta, without rupture (principal) | CPT/HCPCS: 71275 ==

== ENCOUNTER 2024-12-29 14:44 | Outpatient (AMB) | payer OTHER, SELFPAY ==
--- NOTE | 2024-12-29 14:47 | MHC.OFFVIS ---
Vital Signs 12/29/24 14:49 Height 5 ft 8 in Weight 195 lb 5.273 oz BMI 29.7 BP 116/72 Blood Pressure Location Lt brachial Position Sitting Pulse 91 Pulse Source Pulse Oximeter Intake Visit Reasons: r/s 3+mos followup cta aorta Intake Note: 3mth f/up-cta Analytical Data Scientist Required: No Accompanied by: Self / Same As Patient Allergies No Known Allergies (No Known Allergies*) Allergy (Verified 09/09/24 09:21) Medication List - Last Reconciled 12/29/24 by Ace Redman NP amlodipine 5 mg PO DAILY atorvastatin 40 mg PO DAILY blood pressure test kit-large ([email or web address] Versa Arm BP Monitor kit) As directed cephalexin 500 mg PO Q12H 7 days ezetimibe (Zetia) 10 mg PO DAILY levocetirizine 5 mg PO DAILY metoprolol succinate ER 25 mg PO DAILY 90 days nystatin 1 appl topical BID 30 days HPI Comments Details: This is a 59-year-old male patient coming in for a follow-up visit. Patient with history of hypertension, hyperlipidemia, enlarged aorta, and bifascicular block. Patient previously had a coronary calcium score which was negative however did show a enlarged aorta at 4.5 cm. Patient's plan at that time was a aorta CTA which was never completed. Today he returns after completing this and is here to review the results for it. Patient is otherwise denying any cardiac symptoms of exertional chest pain, shortness of breath, palpitations, dizziness, orthopnea, PND, leg edema, presyncope, or syncope. Patient reports compliance with all his medications. [facility] Medical History DANICA (obstructive sleep apnea) Loud snoring Somnolence, daytime Retrognathia Enlarged thoracic aorta Hyperlipidemia Bifascicular block Surgical History Hx of colonoscopy Social History Housing: House Patient Tobacco Use Status: Never used Tobacco e-Cigarette/Vaping Use: Never Used Second Hand Smoke Exposure: No service: No Current occupational status: employed Current occupational exposures/hazards: No Cognitive needs: No Hearing needs: No Vision needs: No Review of Systems Const Denies chills, Denies fatigue, Denies fever(s), Denies frequent falls, Denies weakness, Denies weight gain and Denies weight loss ENT Denies dizziness Card Denies chest pain, Denies leg edema, Denies lightheadedness, Denies palpitations, Denies dyspnea and Denies dyspnea on exertion Resp Denies cough, Denies dyspnea and Denies dyspnea on exertion GI Denies hematochezia Musc Denies abnormal gait, Denies muscle weakness, Denies numbness, Denies radiating pain into limb and Denies tingling Neuro Denies abnormal gait, Denies dizziness, Denies frequent falls, Denies numbness, Denies tingling and Denies weakness Endo Denies fatigue and Denies palpitations Physical Exam Vital Signs: Last Vital Signs Pulse 91 12/29/24 14:49 BP 116/72 12/29/24 14:49 BMI result Body Mass Index 29.7 Const General: cooperative, healthy appearing, comfortable and no acute distress Orientation/consciousness: patient oriented x3 HEENT Head: Yes normal to inspection Neck Neck: Yes normal visual inspection, Yes trachea midline and Yes supple Chest Chest palpation & inspection: normal inspection of the chest Resp Effort & Inspection: normal respiratory effort Auscultation: clear to auscultation bilaterally, no crackles, no rales, no rhonchi and no wheezes Cardio Jugular venous distension: no JVD Palpation: normal PMI Rate: regular rate Rhythm: regular rhythm Heart sounds: S1 normal heart sound present, S2 normal heart sound present, no click, no gallops, no murmurs and no rubs Peripheral pulses: Peripheral pulses 2+ throughout GI Inspection: Yes normal to inspection Palpation (GI): Soft to palpation Auscultation: normal bowel sounds Skin General skin exam: no rashes or lesions noted Neuro General: patient oriented x3 Extrem General: Yes normal to inspection, No no pedal edema and No calf tenderness Psych Appearance: grossly normal Mental Status: mental status grossly normal Speech and movement: Normal speech and movement present Assessment & Plan Assessment & Plan (1) Enlarged thoracic aorta: Code(s): I77.89 - Other specified disorders of arteries and arterioles Category: Medical Plan: 09/19/2021-coronary calcium score showed a calcium score of 0 however showed an enlargement of ascending aorta at 4.5 cm. 08/07/2022-echo study showed low- normal EF at 52%. 11/08/2024-aorta CTA showed a slightly larger aortic aneurysm at 4.7 cm. Clinically stable. We will repeat an echo in the next 5-6 months. Discussed in detail about symptoms to watch for associated with this. Also comprehensively distressed with the patient the potential need for an intervention in case of an enlarged aorta approaching 5 cm. Patient verbalizes understanding and agrees with the plan to repeat echo in next 6 months. In the meantime emphasized aggressive management of vascular risk factors. (2) Bifascicular block: Code(s): I45.2 - Bifascicular block Category: Medical Plan: Clinically stable. We will continue to monitor. (3) Hypertension: Code(s): I10 - Essential (primary) hypertension Category: Medical Qualifiers: Hypertension type: primary hypertension Qualified Code(s): I10 - Essential (primary) hypertension Plan: Blood pressure today is well-controlled. Advised patient to monitor blood pressures at home and keep a log of it. Ideally, blood pressure goal less than 130/80. (4) Hyperlipidemia: Code(s): E78.5 - Hyperlipidemia, unspecified Category: Medical Plan: Most recent LDL at 78. Continue statin and Zetia therapy. Ideally, LDL goal less than 70. Advised heart healthy diet- DASH diet, regular exercise, low-salt diet, med compliance, and aggressive management of vascular risk factors. We will follow up with the patient in 6 months. In the interim, patient will call us with any concerns or change in symptoms. This note was generated using voice recognition software. While every effort has been made to ensure accuracy and proper controlled area checker, there may be occasional errors that could affect the content or meaning of the described symptoms. Orders: Orders CA echo transthoracic complete 5 Months I77.89 - Other specified disorders of arteries and arterioles Coding Level of Care Code Est Pt Level 4 (92844) Complex EM visit Add On G2211 Diagnoses Enlarged thoracic aorta I77.89 Bifascicular block I45.2 Primary hypertension I10 Hypertension type: primary hypertension Hyperlipidemia E78.5 Time Spent (min) 32 Comment Time spent in reviewing the chart, test results, assessment, counseling and documentation.
[2024-12-29 14:49] VITALS: BP 116/72; PULSE 91; BMI 29.7
--- OUTSIDE RECORDS SUMMARY | 2024-12-29 14:50 | XMS_ITS | Clinical Summary ---
Author Organization [facility] Address [address] [place] [address] Care Team Providers Care Dermatology Sales Representative Name Role Phone Chirag Baker MD Primary Care Provider [phone] Allergies No known active allergies Medications Medication [...] (1 of 2) 2016 Influenza Vaccine (#1) 2025 Pneumococcal Vaccine Aged Out No long er eligible based on patient's age to complete this topic RSV Ped < 20 months Aged Out No longe r eligible based on patient's age to complete this topic Care Teams Dermatology Sales Representative Relationship Specialty Start Date End Date Chirag Baker MD [address] [place] [address] [place] [phone] PCP - General Internal Medicine 01/22/17
--- OUTSIDE RECORDS SUMMARY | 2024-12-29 14:50 | XMS_ITS | Patient Health Record ---
Author Organization [facility] Address [address] [place] [address] Care Team Providers Care Business Architect Name Role Phone Samuel BARRIOS, Chirag Primary Care Provider Unavail able Álvaro Bolnaos Jr Unavailable Reason For Referral No Information Social History [...] confirmed Problem Hemorrhage of rectum and anus (489926704) Hemorrhage of rectum and anus (569.3) Active confirmed Plan Of Treatment No Information Insurance Providers Payer Name Payer Address Payer Phone Subscriber Number Group Number Insured Name Patient Relationship to Insured Coverage Start Date Coverage End Date MEDICAID OF [facility] [address] [place] [phone] [id number] Henrry Avendano Self - patient is the insured Medical (General) History Medical History History ICD Code he denies other medical problems. Surgical History Surgery Date(Month/Year) back surgery for spinal tumor.
== END 2024-12-29 15:21 | disposition home or self-care (01) ==
LOC: HO.HCS 14:45
PROVIDERS: PCP Family Medicine
DX: I77.89 Other specified disorders of arteries and arterioles (principal); I45.2 Bifascicular block; I10 Essential (primary) hypertension; E78.5 Hyperlipidemia, unspecified
CPT/HCPCS: 99214

== ENCOUNTER → 2024-12-29 14:44 | Outpatient (BNVA) | payer OTHER, SELFPAY | PROVIDERS: PCP Family Medicine | DX: I77.89 Other specified disorders of arteries and arterioles (principal); I10 Essential (primary) hypertension; I45.2 Bifascicular block; E78.5 Hyperlipidemia, unspecified | CPT/HCPCS: 99212 ==